=== PATIENT | female | born 1990 | race Caucasian/White ===

== ENCOUNTER 2018-12-08 21:12 | Emergency (ER) | payer OTHER ==
[2018-12-08 21:24] VITALS: BP 129/76; PULSE 77; RESP 20; TEMP 98.4
[2018-12-08 22:11] LABS: Appearance,Urine Clear (Clear); Bilirubin,Urine Negative (Negative); Blood,Urine Moderate (Negative); Color,Urine Yellow; Glucose,Urine (UA) Negative (Negative); Ketones,Urine Negative (Negative); Leukocyte Esterase,Urine Trace (Negative); Mucus,Urine Rare /hpf; Nitrite,Urine Negative (Negative); PH, Urine 6.5 (5.0-8.0); Protein,Urine Trace (Negative); RBC,Urine 1 /hpf (0-5); Specific Gravity,Urine 1.031 (1.001-1.035); Squamous Epithelial Cell,Urine 2 /hpf (0-4); Urobilinogen,Urine <2.0 mg/dL (<2.0)
--- NOTE | 2018-12-08 22:50 | ED ---
Female Urogenital HPI - General Chief complaint: Vaginal Bleeding Stated complaint: Vaginal bleeding Time Seen by Provider: 12/08/18 21:29 Source: patient Mode of arrival: ambulatory Limitations: no limitations - History of Present Illness Initial comments: Patient is a 28-year-old female presenting to emergency Department with complaints of vaginal and anal spotting 3 days. Patient states when she wipes after using the restroom she noticed his blood coming from her rectum and then also her vaginal area. Patient denies any abdominal pain, nausea, vomiting, fevers, chills. Patient denies any history of hemorrhoids. Patient states she recently had a Pap smear and STD testing at local [facility] and everything was negative. Patient states her last menstrual cycle was approximately 2 weeks ago. Patient denies having burning with urination, increasing frequency, or any other vaginal discharge. Patient has no other complaints at this time. Last Menstrual Period: 11/24/18 - Related Data Previous Rx's Medication Instructions Recorded Albuterol Inhaler [Ventolin Hfa 2 puff INHALATION Q4HR PRN #1 03/13/15 Inhaler] inhaler predniSONE 20 mg PO BID #8 tab 03/13/15 Allergies Allergy/AdvReac Type Severity Reaction Status Date / Time No Known Allergies Allergy Verified 12/08/18 21:24 Review of Systems ROS Statement: Those systems with pertinent positive or pertinent negative responses have been documented in the HPI. ROS Other: All systems not noted in ROS Statement are negative. Past Medical History Past Medical History: Asthma History of Any Multi-Drug Resistant Organisms: None Reported Past Surgical History: No Surgical Hx Reported Past Psychological History: No Psychological Hx Reported Smoking Status: Current every day smoker Past Alcohol Use History: Occasional Past Drug Use History: None Reported General Exam - General Exam Comments Initial Comments: GENERAL: Well-appearing, well-nourished and in no acute distress. HEAD: Atraumatic, normocephalic. EYES: Pupils equal round and reactive to light, extraocular movements intact, sclera anicteric, conjunctiva are normal. ENT: TMs normal, nares patent, oropharynx clear without exudates. Moist mucous membranes. NECK: Normal range of motion, supple without lymphadenopathy or JVD. LUNGS: Breath sounds clear to auscultation bilaterally and equal. No wheezes rales or rhonchi. HEART: Regular rate and rhythm without murmurs, rubs or gallops. ABDOMEN: Soft, nontender, normoactive bowel sounds. No guarding, no rebound. No masses appreciated. EXTREMITIES: Normal range of motion, no pitting or edema. No clubbing or cyanosis. NEUROLOGICAL: Cranial nerves II through XII grossly intact. Normal speech, normal gait. PSYCH: Normal mood, normal affect. SKIN: Warm, Dry, normal turgor, no rashes or lesions noted. Limitations: no limitations Rectal exam: Present: normal inspection External exam: Present: normal external exam Course Vital Signs 12/08/18 21:20 Temperature 98.4 F Pulse Rate 77 Respiratory 20 Rate Blood Pressure 129/76 O2 Sat by Pulse 98 Oximetry Medical Decision Making - Medical Decision Making Patient is a 20-year-old female complaining of vaginal and/or rectal spotting 3 days. Patient states she noticed the bleeding only when she wipes after having a bowel movement. Patient's last menstrual cycle was approximately 2 weeks ago. Patient denies abdominal pain, nausea, vomiting, fever, chills. On exam patient has no active bleeding from the vagina or the rectum. No abdominal pain. UA is within normal limits except moderate amount of blood. Urine hCG is not detected. Patient recently had Pap smear and STD testing at local health department and patient did test positive for Trichomonas but was treated. Patient was counseled on the possibility of having internal hemorrhoids along with irregular periods and/or some spotting with ovulation. Patient was counseled to follow up GARMENT INSPECTOR for further management. Patient is okay with this plan and will be discharged home. Return parameters were discussed. Case is discussed with Dr. Frank. - Lab Data Lab Results 12/08/18 12/08/18 Range/Units 21:00 21:00 Urine Color Yellow Urine Appearance Clear (Clear) Urine pH 6.5 (5.0-8.0) Ur Specific [place] 1.031 (1.001-1.035) Urine Protein Trace H (Negative) Urine Glucose (UA) Negative (Negative) Urine Ketones Negative (Negative) Urine Blood Moderate H (Negative) Urine Nitrite Negative (Negative) Urine Bilirubin Negative (Negative) Urine Urobilinogen <2.0 (<2.0) mg/dL Ur Leukocyte Esterase Trace H (Negative) Urine RBC 1 (0-5) /hpf Urine WBC 3 (0-5) /hpf Ur Squamous Epith Cells 2 (0-4) /hpf Urine Mucus Rare H (None) /hpf Urine HCG, Qual Not Detected (Not Detectd) Disposition Clinical Impression: Vaginal bleeding Disposition: HOME SELF-CARE Condition: Stable Instructions (If sedation given, give patient instructions): Menstruation (ED) Additional Instructions: Please return to the Emergency Department if symptoms worsen or any other concerns. Follow-up with G[facility] INSPECTOR.and/or GI. Is patient prescribed a controlled substance at d/c from ED?: No Referrals: None,Stated [Primary Care Provider] - 1-2 days Constantine Koo MD [STAFF PHYSICIAN] - 1-2 days
== END 2018-12-08 23:06 | disposition home or self-care (01) ==
LOC: EC 21:12
DX: N93.9 Abnormal uterine and vaginal bleeding, unspecified (principal); F17.200 Nicotine dependence, unspecified, uncomplicated
CPT/HCPCS: 81001; 81025; 99284

== ENCOUNTER → 2021-04-13 | Outpatient (CLI) | payer OTHER ==
[2021-04-13 14:07] VITALS: BP 121/82; PULSE 92; RESP 16; TEMP 98.5; BMI 39.2
--- NOTE | 2021-04-30 19:18 | P.HPBAR ---
Bariatric H&P - History & Physicial H&P Date: 04/13/21 History & Physicial: Visit/CC: Initial Visit Patient initial contact: Initial weight: 2.523 kg Initial weight in pounds: 5.56 Height: 5 ft 9 in Initial BMI: 0.8 Last weight: Current weight: 120.656 kg Current weight in pounds: 266.00 Current BMI: 39.2 [place] body weight (based on NIH guidelines): 65.771 kg Excess body weight loss: The patient is a 31 year-old F who presents for Bariatric Assessment. Patient presents today for presurgical consultation. She is interested in sleeve gastrectomy. Her BMI is 39. Past Medical History Past Medical History: Asthma History of Any Multi-Drug Resistant Organisms: None Reported Past Surgical History: No Surgical Hx Reported Past Psychological History: No Psychological Hx Reported Smoking Status: Unknown if ever smoked Past Alcohol Use History: Occasional Past Drug Use History: None Reported Surgical - Exam Vital Signs Temp Pulse Resp BP 98.5 F 92 16 121/82 04/13/21 14:04 04/13/21 14:04 04/13/21 14:04 04/13/21 14:04 - General well developed, well nourished, no distress - Eyes PERRL - ENT normal pinna - Neck no masses - Respiratory normal expansion - Cardiovascular Rhythm: regular - Abdomen Abdomen: soft, non tender Bariatric Assessment & Plan Plan: Morbid obesity. Patient has an excellent understanding of sleeve gastrectomy. Patient be scheduled for EGD. Bariatric Checklist Checklist: Plan: Checklist: EGD: 1. Hiatal hernia: 2. H. Pylori: HgbA1c: Vitamin D: Smoking: Current every day smoker Primary care physician referral: Psychiatry clearance: Cardiology clearance: Sleep study: Diet journal: VTE risk score: VTE risk level: Rehab needs at discharge:
== END ==
LOC: BARWHC3 13:25
PROVIDERS: ATTEND Surgery
DX: E66.01 Morbid (severe) obesity due to excess calories (principal); F17.200 Nicotine dependence, unspecified, uncomplicated; J45.909 Unspecified asthma, uncomplicated; Z68.39 Body mass index [BMI] 39.0-39.9, adult
CPT/HCPCS: 99202

== ENCOUNTER → 2021-04-20 | Outpatient (CLI) | payer OTHER ==
[2021-04-20 20:30] LABS: HCT 40.3 % (37.2-46.3); HGB 12.7 g/dL (12.0-15.0); MCHC 31.5 g/dL (32.0-37.0); MCV 95.3 fL (80.0-97.0); Mean Platelet Volume 11.3 fL (9.5-12.2); Platelet Count 318 X 10*3/uL (140-440); RBC 4.23 X 10*6/uL (4.10-5.20); RDW 13.9 % (11.5-14.5); WBC 8.12 X 10*3/uL (4.50-10.00)
[2021-04-20 21:26] LABS: ALT 23 U/L (8-44); AST 13 U/L (13-35); African American GFR (CKD) 118.5 (60.0-200.0); Albumin 4.1 g/dL (3.8-4.9); Albumin/Globulin Ratio 1.82 (1.60-3.17); Alkaline Phosphatase 46 U/L (41-126); BUN/Creat Ratio 24.03 Ratio (12.00-20.00); Blood Urea Nitrogen 18.6 mg/dL (9.0-27.0); Carbon Dioxide 20.3 mmol/L (21.6-31.8); Chloride 106 mmol/L (96-109); Globulin 2.2 g/dL (1.6-3.3); Glucose 96 mg/dL (70-110); Non-African American GFR(CKD) 102.2 (60.0-200.0); Potassium 4.5 mmol/L (3.5-5.5); Sodium 139 mmol/L (135-145); Total Bilirubin <0.20 mg/dL (0.30-1.20); Total Protein 6.3 g/dL (6.2-8.2)
== END | disposition home or self-care (01) ==
LOC: LABWHC1 12:25
PROVIDERS: ATTEND Surgery
DX: E88.81 Metabolic syndrome and other insulin resistance (principal); E66.01 Morbid (severe) obesity due to excess calories; I49.8 Other specified cardiac arrhythmias
CPT/HCPCS: 36415; 80053; 82306; 82607; 82746; 83036; 84425; 85027; 93005

== ENCOUNTER 2021-05-25 09:38 | Day surgery (SDC) | payer OTHER ==
[2021-05-21 12:14] VITALS: BMI 39.5
[~2021-05-25 09:38] MED LIST: LACTATED RINGERS 1,000 ML IV SCH
[2021-05-25 10:11] VITALS: TEMP 97.7
--- NOTE | 2021-05-25 10:38 | P.GSHP ---
History of Present Illness H&P Date: 05/25/21 Chief Complaint: GERD Is a 31-year-old female who has history of GERD. Patient presents today for EGD. She'll morbidly obese. She underwent workup for sleeve gastrectomy. Her BMI is 41 Past Medical History Past Medical History: Asthma, GERD/Reflux History of Any Multi-Drug Resistant Organisms: None Reported Past Surgical History: No Surgical Hx Reported Additional Past Anesthesia/Blood Transfusion Reaction / Comment(s): NO ANESTHESIA HX Past Psychological History: No Psychological Hx Reported Smoking Status: Current every day smoker Past Alcohol Use History: None Reported Additional Past Alcohol Use History / Comment(s): SMOKES 4-5 CIGARETTES/DAY, STARTED SMOKING AGE 16. Past Drug Use History: None Reported - Past Family History Mother Family Medical History: No Reported History Medications and Allergies Home Medications Medication Instructions Recorded Confirmed Type Albuterol Inhaler (Mhu) [Ventolin 2 puff INHALATION DIRECTED PRN 05/21/21 05/25/21 History Hfa Inhaler (Mhu)] Ergocalciferol [Vitamin D2 (1250 1,250 mcg PO DAILY 05/21/21 05/25/21 History Mcg = 75253 Iu)] Ibuprofen [Motrin] 800 mg PO DAILY PRN 05/21/21 05/25/21 History Allergies Allergy/AdvReac Type Severity Reaction Status Date / Time No Known Allergies Allergy Verified 05/25/21 09:52 Surgical - Exam Vital Signs Temp Pulse Resp BP Pulse Ox 97.7 F 85 18 127/59 95 05/25/21 10:03 05/25/21 10:03 05/25/21 10:03 05/25/21 10:03 05/25/21 10:03 - General well developed, well nourished, no distress - Eyes PERRL - ENT normal pinna - Neck no masses - Respiratory normal expansion - Cardiovascular Rhythm: regular - Abdomen Abdomen: soft, non tender Assessment and Plan Assessment: GERD, morbid obesity. We'll perform EGD.
[2021-05-25] MEDS ORDERED: LIDOCAINE 1% INJ 10MG/ML (20 ML MDV) ONE (10:39)
[2021-05-25] MEDS ORDERED: PROPOFOL 10 MG/ML 20 ML VIAL IV ONE (10:39)
--- NOTE | 2021-05-25 10:51 | P.OP ---
Date of Procedure: 05/25/21 Preoperative Diagnosis: GERD Morbid obesity Postoperative Diagnosis: Esophagitis Small hiatal hernia Procedure(s) Performed: EGD Anesthesia: MAC Surgeon: Kris Magaña Pathology: other (Esophagus) Condition: stable Disposition: PACU Description of Procedure: A shunt placed on the endoscopy table in the lateral position. She received IV sedation. The gastroscope placed oropharynx passed in the esophagus and into the stomach. The scope was then placed through the pylorus. First and second portion of the duodenum appeared somewhat back the antrum this was normal. Scope was retroflexed and the patient had a small hiatal hernia. The GE junction was at 38 cm. The distal esophagus appeared mildly inflamed a biopsies performed. The proximal esophagus appeared normal. Scope withdrawn for patient.
[2021-05-25 10:59] VITALS: RESP 16
[2021-05-25 11:12] VITALS: BP 113/77; PULSE 88
== END 2021-05-25 11:26 | disposition home or self-care (01) ==
LOC: ORWHC2ENDO 09:38
PROVIDERS: ATTEND Surgery
DX: K20.90 Esophagitis, unspecified without bleeding (principal); K44.9 Diaphragmatic hernia without obstruction or gangrene; K21.9 Gastro-esophageal reflux disease without esophagitis; J45.909 Unspecified asthma, uncomplicated; F17.210 Nicotine dependence, cigarettes, uncomplicated
CPT/HCPCS: 43239; 81025; 88305; J2001; J2704

== ENCOUNTER → 2021-06-01 | Outpatient (CLI) | payer OTHER ==
[2021-06-01 13:42] VITALS: BP 110/67; PULSE 69; TEMP 97.8; BMI 39.4
--- NOTE | 2021-06-01 14:55 | P.HPBAR ---
Bariatric H&P - History & Physicial H&P Date: 06/01/21 History & Physicial: Visit/CC: egd follow up Patient initial contact: Initial weight: 2.523 kg Initial weight in pounds: 5.56 Height: 5 ft 9 in Initial BMI: 0.8 Last weight: Current weight: 121.109 kg Current weight in pounds: 267.00 Current BMI: 39.4 [place] body weight (based on NIH guidelines): 65.771 kg Excess body weight loss: The patient is a 31 year-old F who presents for Bariatric Assessment. Patient presents today for presurgical consultation. She is morbidly obese. Her BMI is 40. Her recent EGD. She's had have some minimal gastritis. Past Medical History Past Medical History: Asthma, GERD/Reflux History of Any Multi-Drug Resistant Organisms: None Reported Past Surgical History: No Surgical Hx Reported Additional Past Anesthesia/Blood Transfusion Reaction / Comm: NO ANESTHESIA HX Smoking Status: Current every day smoker - Past Family History Mother Family Medical History: No Reported History Surgical - Exam Vital Signs Temp Pulse BP 97.8 F 69 110/67 06/01/21 13:40 06/01/21 13:40 06/01/21 13:40 - General well developed, well nourished, no distress - Eyes PERRL - ENT normal pinna - Neck no masses - Respiratory normal expansion - Cardiovascular Rhythm: regular - Abdomen Abdomen: soft, non tender Bariatric Assessment & Plan Plan: Morbid obesity. Patient has an excellent understanding of sleeve gastrectomy. We went over the risks and benefits of the procedure. She'll follow-up in 3 months. Bariatric Checklist Checklist: Plan: Checklist: EGD: 1. Hiatal hernia: 2. H. Pylori: HgbA1c: Vitamin D: Smoking: Current every day smoker Primary care physician referral: Psychiatry clearance: Cardiology clearance: Sleep study: Diet journal: VTE risk score: VTE risk level: Rehab needs at discharge:
== END ==
LOC: BARWHC3 13:08
PROVIDERS: ATTEND Surgery
DX: E66.01 Morbid (severe) obesity due to excess calories (principal); J45.909 Unspecified asthma, uncomplicated; F17.200 Nicotine dependence, unspecified, uncomplicated; Z98.84 Bariatric surgery status; Z68.39 Body mass index [BMI] 39.0-39.9, adult
CPT/HCPCS: 99211

== ENCOUNTER 2023-08-23 06:55 | Emergency (ER) | payer OTHER ==
--- NOTE | 2023-08-23 07:03 | ED ---
General Adult HPI - General Stated complaint: Cough,SOB,Chest Discomfort Time Seen by Provider: 08/23/23 07:00 Source: patient, RN notes reviewed Mode of arrival: ambulatory Limitations: no limitations - History of Present Illness Initial comments: 33-year-old female presents to the emergency department with chief complaint of shortness of breath, cough, chest discomfort. Patient states that she has been sick for over 10 days and has been experiencing a productive and dry cough since this time. Patient states that she has had intermittent fevers at home and associated nausea with an episode of vomiting last night. Patient also has complaints of chest pressure that is worsened with inspiration. Denies history of PE. Has attempted to take Tylenol and Motrin at home with minimal relief. Patient has a known history of asthma, and has been using her albuterol rescue i nhaler multiple times throughout the day without relief of her shortness of breath. Denies daily use of inhaled corticosteroid or bronchodilator therapy. Has noted wheezing over the past few days. - Related Data Home Medications Medication Instructions Recorded Confirmed Albuterol Inhaler [Ventolin Hfa 2 puff INHALATION DIRECTED PRN 05/21/21 05/25/21 Inhaler] Ergocalciferol [Vitamin D2 (1250 1,250 mcg PO DAILY 05/21/21 05/25/21 Mcg = 50759 Iu)] Ibuprofen [Motrin] 800 mg PO DAILY PRN 05/21/21 05/25/21 Previous Rx's Medication Instructions Recorded Albuterol Inhaler [Ventolin Hfa 1 - 2 puff INHALATION Q6H PRN #1 08/23/23 Inhaler] each predniSONE [Deltasone] 20 mg PO BID 5 Days #10 tab 08/23/23 Allergies Allergy/AdvReac Type Severity Reaction Status Date / Time No Known Allergies Allergy Verified 08/23/23 06:58 Review of Systems ROS Statement: Those systems with pertinent positive or pertinent negative responses have been documented in the HPI. ROS Other: All systems not noted in ROS Statement are negative. Past Medical History Past Medical History: Asthma, GERD/Reflux History of Any Multi-Drug Resistant Organisms: None Reported Past Surgical History: No Surgical Hx Reported Additional Past Anesthesia/Blood Transfusion Reaction / Comment(s): NO ANESTHESIA HX Past Psychological History: No Psychological Hx Reported Smoking Status: Current every day smoker Past Alcohol Use History: Occasional Past Drug Use History: Marijuana - Past Family History Mother Family Medical History: No Reported History General Exam Limitations: no limitations General appearance: alert, in no apparent distress, anxious Head exam: Present: atraumatic, normocephalic, normal inspection Eye exam: Present: normal appearance, PERRL, EOMI. Absent: scleral icterus, conjunctival injection, periorbital swelling ENT exam: Present: normal exam, mucous membranes moist Neck exam: Present: normal inspection. Absent: tenderness, meningismus, lymphadenopathy Respiratory exam: Present: wheezes (expiratory over right lung). Absent: normal lung sounds bilaterally, accessory muscle use Cardiovascular Exam: Present: regular rate, normal rhythm, tachycardia GI/Abdominal exam: Present: soft, normal bowel sounds. Absent: distended, tenderness, guarding, rebound, rigid Extremities exam: Present: normal inspection, full ROM, normal capillary refill. Absent: tenderness, pedal edema, joint swelling, calf tenderness Back exam: Present: normal inspection Neurological exam: Present: alert, oriented X3, CN II-XII intact Psychiatric exam: Present: normal affect, normal mood Skin exam: Present: warm, dry, intact, normal color. Absent: rash Course Vital Signs 08/23/23 08/23/23 08/23/23 06:56 07:44 07:51 Temperature 98 F Pulse Rate 127 H Pulse Rate [ 122 H Apical] Respiratory 22 18 Rate Blood Pressure 130/86 O2 Sat by Pulse 93 L Oximetry 08/23/23 08/23/23 08:16 08:28 Temperature Pulse Rate 106 H 100 Pulse Rate [ Apical] Respiratory 18 Rate Blood Pressure O2 Sat by Pulse 96 Oximetry Medical Decision Making - Medical Decision Making Was pt. sent in by a medical professional or institution (, PA, SUPERVISOR ELECTRON[employer]SEMBLY, urgent care, hospital, or usp...) When possible be specific @ -No Did you speak to anyone other than the patient for history (EMS, parent, family, police, friend...)? What history was obtained from this source @ -No Did you review nursing and triage notes (agree or disagree)? Why? @ -I reviewed and agree with nursing and triage notes Were old charts reviewed (outside hosp., previous admission, EMS record, old EKG, old radiological studies, urgent care reports/EKG's, usp records)? Report findings @ -No old charts were reviewed Differential Diagnosis (chest pain, altered mental status, abdominal pain women, abdominal pain men, vaginal bleeding, weakness, fever, dyspnea, syncope, headache, dizziness, GI bleed, back pain, seizure, CVA, palpatations, mental hea lth, musculoskeletal)? @ -Differential Dyspnea: Coronary syndrome, arrhythmia, tamponade, asthma, COPD, pulmonary embolism, pneumonia, pneumothorax, pulmonary effusion, anaphylaxis, diabetic ketoacidosis, flailed chest, pulmonary contusion, diaphragmatic rupture, anemia, neuromuscular, this is not meant to be an all-inclusive list. EKG interpreted by me (3pts min.). @ -interpreted as [place] rhythm, ventricular rate 98, ME interval 128, QTc 403. No acute ischemic changes.] X-rays interpreted by me (1pt min.). @ -cxr revelaed no acute cardiopulmonary process. CT interpreted by me (1pt min.). @ -None done U/S interpreted by me (1pt. min.). @ -None done What testing was considered but not performed or refused? (CT, X-rays, U/S, labs)? Why? @ -None What meds were considered but not given or refused? Why? @ -None Did you discuss the management of the patient with other professionals (martin durant i.e. , PA, SUPERVISOR ELECTRON[employer] ASSEMBLY, lab, RT, psych nurse, oncology social work, water tender, teacher, police officer booking, test case developer)? Give summary @ -No Was smoking cessation discussed for >3mins.? @ -No Was critical care preformed (if so, how long)? @ -No Were there social determinants of health that impacted care today? How? (Homelessness, low income, unemployed, alcoholism, drug addiction, transportation, low edu. Level, literacy, decrease access to med. care, retirement, rehab)? @ -No Was there de-escalation of care discussed even if they declined (Discuss DNR or withdrawal of care, Hospice)? DNR status @ -No What co-morbidities impacted this encounter? (DM, HTN, Smoking, COPD, CAD, Cancer, CVA, ARF, Chemo, Hep., AIDS, mental health diagnosis, sleep apnea, morbid obesity)? @ -Asthma Was patient admitted / discharged? Hospital course, mention meds given and route, prescriptions, significant lab abnormalities, going to OR and other pertinent info. @ -33-year-old female presents with chief complaint of cough, chest chest pressure, shortness of breath. Patient was given IV fluids, IV Solu-Medrol, and DuoNeb. EKG unremarkable for arrhythmia and ischemic changes. CBC revealed white blood cells 14, neutrophils 10. CMP sodium 136. cxr revelaed no acute cardiopulmonary process. Influenza A positive. wheezing has slightly improved proved after breathing treatment. Undiagnosed new problem with uncertain prognosis? @ -No Drug Therapy requiring intensive monitoring for toxicity (Heparin, Nitro, Insulin, Cardizem)? @ -No Were any procedures done? @ -No Diagnosis/symptom? @ Influenza A, acute asthma exacerbation Acute, or Chronic, or Acute on Chronic? @ -Acute Uncomplicated (without systemic symptoms) or Complicated (systemic symptoms)? @ -complicated Side effects of treatment? @ -No Exacerbation, Progression, or Severe Exacerbation? @ -Exacerbation Poses a threat to life or bodily function? How? (Chest pain, [place], [place], pneumonia, PE, COPD, DKA, ARF, appy, cholecystitis, CVA, Diverticulitis, Homicidal, [place] icidal, threat to staff... and all critical care pts) @ -No - Lab Data Result diagrams: 08/23/23 07:33 08/23/23 07:33 Lab Results 08/23/23 08/23/23 08/23/23 Range/Units 07:33 07:33 07:33 WBC 14.0 H (3.8-10.6) k/uL RBC 4.69 (3.80-5.40) m/uL Hgb 15.1 (11.4-16.0) gm/dL Hct 43.2 (34.0-46.0) % MCV 92.2 (80.0-100.0) fL MCH 32.2 (25.0-35.0) pg MCHC 35.0 (31.0-37.0) g/dL RDW 12.8 (11.5-15.5) % Plt Count 260 (150-450) k/uL MPV 8.9 Neutrophils % 76 % Lymphocytes % 14 % Monocytes % 6 % Eosinophils % 1 % Basophils % 1 % Neutrophils # 10.6 H (1.3-7.7) k/uL Lymphocytes # 2.0 (1.0-4.8) k/uL Monocytes # 0.9 (0-1.0) k/uL Eosinophils # 0.1 (0-0.7) k/uL Basophils # 0.1 (0-0.2) k/uL Sodium 136 L (137-145) mmol/L Potassium 3.7 (3.5-5.1) mmol/L Chloride 101 (98-107) mmol/L Carbon Dioxide 22 (22-30) mmol/L Anion Gap 13 mmol/L BUN 11 (7-17) mg/dL Creatinine 0.60 (0.52-1.04) mg/dL Est GFR (CKD-EPI)AfAm >90 (>60 ml/min/1.73 sqM) Est GFR (CKD-EPI)NonAf >90 (>60 ml/min/1.73 sqM) Glucose 117 H (74-99) mg/dL Calcium 9.5 (8.4-10.2) mg/dL Total Bilirubin 0.7 (0.2-1.3) mg/dL AST 26 (14-36) U/L ALT 24 (4-34) U/L Alkaline Phosphatase 45 (38-126) U/L Total Protein 7.6 (6.3-8.2) g/dL Albumin 4.5 (3.5-5.0) g/dL Influenza Type A (PCR) Detected A (Not Detectd) Influenza Type B (PCR) Not Detected (Not Detectd) RSV (PCR) Not Detected (Not Detectd) SARS-CoV-2 (PCR) Not Detected (Not Detectd) Disposition Clinical Impression: Influenza A, Asthma exacerbation Narrative: Please return to the Emergency Department if symptoms worsen or any other concerns. Directed patient how to appropriately use inhaler. Disposition: HOME SELF-CARE Condition: Good Instructions (If sedation given, give patient instructions): Influenza (ED) Is patient prescribed a controlled substance at d/c from ED?: No Referrals: Lokesh Lunsford MD [Primary Care Provider] - 1-2 days
[2023-08-23 07:23] VITALS: BP 130/86
[2023-08-23] MEDS: SODIUM CHLORIDE 0.9% 1,000 ML IV STA (07:37)
[2023-08-23 07:51] LABS: Basophils # (A) 0.1 k/uL (0-0.2); Basophils % (A) 1 %; Eosinophils # (A) 0.1 k/uL (0-0.7); Eosinophils % (A) 1 %; HCT 43.2 % (34.0-46.0); HGB 15.1 gm/dL (11.4-16.0); Lymphocytes % (A) 14 %; MCH 32.2 pg (25.0-35.0); MCV 92.2 fL (80.0-100.0); Mean Platelet Volume 8.9; Monocytes # (A) 0.9 k/uL (0-1.0); Monocytes % (A) 6 %; Neutrophils # (A) 10.6 k/uL (1.3-7.7); Neutrophils % (A) 76 %; Platelet Count 260 k/uL (150-450); RBC 4.69 m/uL (3.80-5.40); RDW 12.8 % (11.5-15.5)
[2023-08-23 07:57] VITALS: RESP 18
[2023-08-23] MEDS: methylPREDNISolone SOD SUCCI 125 MG/2 ML VIAL IV STA (07:57)
[2023-08-23 08:06] LABS: ALT 24 U/L (4-34); AST 26 U/L (14-36); African American GFR (CKD) >90 (>60 ml/min/1.73 sqM); Albumin 4.5 g/dL (3.5-5.0); Alkaline Phosphatase 45 U/L (38-126); Anion Gap 13 mmol/L; Blood Urea Nitrogen 11 mg/dL (7-17); Calcium 9.5 mg/dL (8.4-10.2); Carbon Dioxide 22 mmol/L (22-30); Chloride 101 mmol/L (98-107); Glucose 117 mg/dL (74-99); Non-African American GFR(CKD) >90 (>60 ml/min/1.73 sqM); Potassium 3.7 mmol/L (3.5-5.1); Sodium 136 mmol/L (137-145); Total Bilirubin 0.7 mg/dL (0.2-1.3); Total Protein 7.6 g/dL (6.3-8.2)
--- NOTE | 2023-08-23 08:10 | XR ---
EXAMINATION TYPE: XR chest 2V DATE OF EXAM: 08/23/2023 COMPARISON: 03/13/2015 HISTORY: Chest pain TECHNIQUE: Frontal and lateral views of the chest are obtained. FINDINGS: There is no focal air space opacity. No evidence for pneumothorax. No pleural effusion. The cardiac silhouette size is within normal limits. The osseous structures are grossly intact. IMPRESSION: 1. No acute cardiopulmonary process.
[2023-08-23] MEDS: IPRATROPIUM-ALBUTEROL 3 ML NEB INHALATION STA (08:27)
[2023-08-23 09:11] VITALS: PULSE 105; TEMP 98.9
== END 2023-08-23 08:53 | disposition home or self-care (01) ==
LOC: EC 06:55
DX: J10.1 Influenza due to other identified influenza virus with other respiratory manifestations (principal); J45.901 Unspecified asthma with (acute) exacerbation; F17.200 Nicotine dependence, unspecified, uncomplicated; F12.90 Cannabis use, unspecified, uncomplicated; Z20.822 Contact with and (suspected) exposure to COVID-19
CPT/HCPCS: 36415; 94640; 93005; 80053; 85025; 87636; 71046; 99285; 96374; 96361; J2930

== ENCOUNTER → 2024-03-06 | Outpatient (CLI) | payer OTHER | END | disposition home or self-care (01) | LOC: LABWHC1 14:27 | PROVIDERS: ATTEND Obstetrics & Gynecology | DX: O20.0 Threatened abortion (principal) | CPT/HCPCS: 36415; 84702; 86850; 86900; 86901 ==

== ENCOUNTER → 2024-03-08 | Outpatient (CLI) | payer OTHER | LOC: LABWHC1 15:31 | PROVIDERS: ATTEND Obstetrics & Gynecology | DX: O20.0 Threatened abortion (principal) | CPT/HCPCS: 36415; 84702 ==

== ENCOUNTER 2024-03-09 12:56 | Emergency (ER) | payer OTHER ==
[2024-03-09 13:06] VITALS: BP 110/74; PULSE 73; RESP 15; TEMP 97.8
--- NOTE | 2024-03-09 14:27 | US ---
EXAMINATION TYPE: Transabdominal DATE OF EXAM: 03/09/2024 1:49 PM COMPARISON: NONE CLINICAL INDICATION: Female, 34 years old with history of pain; Pt states abnormal ultrasound at [facility] 1 1/2 weeks ago- no pole visualized- pt states HCG levels increased by 5 points in 48 hours- pt states no bleeding, no pain EXAM PERFORMED: Transabdominal (TA) EXAM MEASUREMENTS: GESTATIONAL AGE / DATING Physician Established: Not yet established Dates by LMP: (9 weeks/0 days) EDC: 10/12/2024 Dates by First Scan: No previous this is first scan Dates by Current Scan for: (7 weeks/2 days) EDC: 10/24/2024 MATERNAL ANATOMY Uterus: 9.7 x 5.0 x 5.2 cm Right Ovary: 3.0 x 2.5 x 2.4 cm Left Ovary: 2.5 x 1.4 x 2.4 cm Post CDS / Adnexa: wnl Presence of free fluid: No Presence of corpus luteal cyst: Right Ovary= 2.0 x 1.5 x 1.8 cm Presence of subchorionic bleed: No GESTATION / SURVEY CRL: Not visualized on today's exam . [place]-rump length should be visualized at 6 weeks by transvagin al ultrasound MSD: 2.6 cm (7 weeks/2 days) Yolk Sac (normal less than 6mm): 3mm Date of LMP: 01/06/2024 Beta HcG (if available): Not available at this time Gestational sac visualized within uterus- possible yolk sac with empty amnion visualized- no pole visualized on today's exam IMPRESSION: 1. Single intrauterine gestational sac estimated at 7 weeks 2 days gestation based on the mean sac di ameter. However, no pole is identified. No cardiac activity is evident. Yolk sac is present. Co nsider blighted ovum. Correlation with beta hCG and follow-up is recommended [facility], , 03/09/2024 2:24 PM
--- NOTE | 2024-03-09 15:56 | ED ---
General Adult HPI - General Chief complaint: OB/Uterine Contractions Stated complaint: 6 wks , low HCG levels Time Seen by Provider: 03/09/24 13:08 Source: patient, RN notes reviewed Mode of arrival: ambulatory Limitations: no limitations - History of Present Illness Initial comments: 34-year-old female presents emergency department complaint of possible miscarriage. Patient states her hCG levels are not climbing as usual she states she had ultrasound last week did not show any activity. Patient denies any vaginal bleeding or abdominal pain. - Related Data Home Medications Medication Instructions Recorded Confirmed Albuterol Inhaler [Ventolin Hfa 2 puff INHALATION DIRECTED PRN 05/21/2105/25 Inhaler] Ergocalciferol [Vitamin D2 (1250 1,250 mcg PO DAILY 05/21/21 05/25/21 Mcg = 64585 Iu)] Ibuprofen [Motrin] 800 mg PO DAILY PRN 05/21/21 05/25/21 Previous Rx's Medication Instructions Recorded Albuterol Inhaler [Ventolin Hfa 1 - 2 puff INHALATION Q6H PRN #1 08/23/23 Inhaler] each predniSONE [Deltasone] 20 mg PO BID 5 Days #10 tab 08/23/23 Allergies Allergy/AdvReac Type Severity Reaction Status Date / Time No Known Allergies Allergy Verified 03/09/24 13:06 Review of Systems ROS Statement: Those systems with pertinent positive or pertinent negative responses have been documented in the HPI. ROS Other: All systems not noted in ROS Statement are negative. Past Medical History Past Medical History: Asthma, GERD/Reflux History of Any Multi-Drug Resistant Organisms: None Reported Past Surgical History: No Surgical Hx Reported Additional Past Anesthesia/Blood Transfusion Reaction / Comment(s): NO ANESTHESIA HX Past Psychological History: No Psychological Hx Reported Smoking Status: Current every day smoker Past Alcohol Use History: None Reported, Occasional Past Drug Use History: None Reported, Marijuana - Past Family History Mother Family Medical History: No Reported History General Exam Limitations: no limitations General appearance: alert, in no apparent distress Head exam: Present: atraumatic, normocephalic, normal inspection Neck exam: Present: normal inspection, full ROM. Absent: tenderness, meningismus, lymphadenopathy Respiratory exam: Present: normal lung sounds bilaterally. Absent: respiratory distress, wheezes, rales, rhonchi, stridor Cardiovascular Exam: Present: regular rate, normal rhythm, normal heart sounds. Absent: systolic murmur, diastolic murmur, rubs, gallop, clicks GI/Abdominal exam: Present: soft, normal bowel sounds. Absent: distended, tenderness, guarding, rebound, rigid Neurological exam: Present: alert Course Vital Signs 03/09/24 13:01 Temperature 97.8 F Pulse Rate 73 Respiratory 15 Rate Blood Pressure 110/74 O2 Sat by Pulse 100 Oximetry Medical Decision Making - Medical Decision Making Was pt. sent in by a medical professional or institution (, PA, OIL SALES AND SERVICE REP, urgent care, hospital, or penitentiary...) When possible be specific @ -No Did you speak to anyone other than the patient for history (EMS, parent, family, police, friend...)? What history was obtained from this source @ -No Did you review nursing and triage notes (agree or disagree)? Why? @ -I reviewed and agree with nursing and triage notes Were old charts reviewed (outside hosp., previous admission, EMS record, old EKG, old radiological studies, urgent care reports/EKG's, penitentiary records)? Report findings @ -No old charts were reviewed Differential Diagnosis (chest pain, altered mental status, abdominal pain women, abdominal pain men, vaginal bleeding, weakness, fever, dyspnea, syncope, hea dache, dizziness, GI bleed, back pain, seizure, CVA, palpatations, mental health, musculoskeletal)? @ -Differential Vaginal Bleeding: Spontaneous , threatened , molar , ectopic , bloody show, incompetent cervix, abruptioplacenta, placenta previa, uterine rupture, dysfunctional uterine bleeding, hemorrhage, uterine fibroids, this is not meant to be an all-inclusive list. EKG interpreted by me (3pts min.). @ -None X-rays interpreted by me (1pt min.). @ -None done CT interpreted by me (1pt min.). @ -None done U/S interpreted by me (1pt. min.). @ -Ultrasound OB shows evidence of blighted ovum, no heart activity What testing was considered but not performed or refused? (CT, X-rays, U/S, labs)? Why? @ -None What meds were considered but not given or refused? Why? @ -None Did you discuss the management of the patient with other professionals (professionals i.e. , PA, OIL SALES AND SERVICE REP, lab, RT, psych nurse, licensed social worker, form tamper operator, teacher, digital marketing officer, field case manager)? Give summary @ -No Was smoking cessation discussed for >3mins.? @ -No Was critical care preformed (if so, how long)? @ -No Were there social determinants of health that impacted care today? How? (Homelessness, low income, unemployed, alcoholism, drug addiction, transportation, low edu. Level, literacy, decrease access to med. care, longterm, rehab)? @ -No Was there de-escalation of care discussed even if they declined (Discuss DNR or withdrawal of care, Hospice)? DNR status @ -No What co-morbidities impacted this encounter? (DM, HTN, Smoking, COPD, CAD, Cancer, CVA, ARF, Chemo, Hep., AIDS, mental health diagnosis, sleep apnea, morbid obesity)? @ -None Was patient admitted / discharged? Hospital course, mention meds given and route, prescriptions, significant lab abnormalities, going to OR and other pertinent info. @ -Charge patient presented for possible miscarriage hCG has declined, ultrasound consistent with blighted ovum patient will follow-up with VETERINARY MANAGER. Undiagnosed new problem with uncertain prognosis? @ -No Drug Therapy requiring intensive monitoring for toxicity (Heparin, Nitro, Insulin, Cardizem)? @ -No Were any procedures done? @ -No Diagnosis/symptom? @ -Miscarriage Acute, or Chronic, or Acute on Chronic? @ -Acute Uncomplicated (without systemic symptoms) or Complicated (systemic symptoms)? @ -Uncomplicated Side effects of treatment? @ -No Exacerbation, Progression, or Severe Exacerbation? @ -No Poses a threat to life or bodily function? How? (Chest pain, [place], [place], pneumonia, PE, COPD, DKA, ARF, appy, cholecystitis, CVA, Diverticulitis, Homicidal, Sosa icidal, threat to staff... and all critical care pts) @ -No - Lab Data Lab Results 03/09/24 Range/Units 13:29 HCG, Quant 30653.4 mIU/mL Disposition Clinical Impression: Blighted ovum, Miscarriage Disposition: HOME SELF-CARE Condition: Stable Instructions (If sedation given, give patient instructions): Miscarriage (ED) Additional Instructions: Please return to the Emergency Department if symptoms worsen or any other concerns. Is patient prescribed a controlled substance at d/c from ED?: No Referrals: Lokesh Lunsford MD [Primary Care Provider] - 1-2 days Time of Disposition: 15:56
== END 2024-03-09 16:16 | disposition home or self-care (01) ==
LOC: EC 12:56
DX: O02.0 Blighted ovum and nonhydatidiform mole (principal); O03.9 Complete or unspecified spontaneous abortion without complication; O99.331 Smoking (tobacco) complicating pregnancy, first trimester; F17.200 Nicotine dependence, unspecified, uncomplicated; Z3A.01 Less than 8 weeks gestation of pregnancy
CPT/HCPCS: 36415; 76801; 84702; 99284

== ENCOUNTER 2024-03-17 07:24 | Emergency (ER) | payer OTHER ==
[2024-03-17] MEDS: MORPHINE SULFATE 4 MG/ML SYRINGE IVP STA (07:54)
[2024-03-17] MEDS: ONDANSETRON 4 MG/2 ML VIAL IVP STA (07:54)
[2024-03-17] MEDS: SODIUM CHLORIDE 0.9% 1,000 ML IV STA (07:55)
--- NOTE | 2024-03-17 08:15 | ED ---
Abdominal Pain HPI - General Chief Complaint: Abdominal Pain Stated Complaint: Abd pain, vaginal bleeding, miscarriage Time Seen by Provider: 03/17/24 08:13 Source: patient, RN notes reviewed, old records reviewed Mode of arrival: ambulatory Limitations: no limitations - History of Present Illness Initial Comments: 34-year-old female presented the ER with a chief complaint of lower abdominal pain. Patient was seen here on 03-09-2024 and was told she was having a miscarriage. Patient states approximately 3 days ago she started to have heavy vaginal bleeding including clots. She states the bleeding has since subsided. Stating she went through about 2 pads yesterday. She states last night she started to experience mild abdominal cramping which is increased today to a 10 out of 10 sharp pain. She has not followed up with REHABILITATION AIDE/SCHEDULER since last visit. She does report nausea due to the pain. She has taken [id number] ibuprofen without relief. Denies any fevers or chills. Denies any diarrhea, constipation, peripheral edema, dysuria or other complaints. - Related Data Home Medications Medication Instructions Recorded Confirmed Albuterol Inhaler [Ventolin Hfa 2 puff INHALATION DIRECTED PRN 05/21/21 05/25/21 Inhaler] Ergocalciferol [Vitamin D2 (1250 1,250 mcg PO DAILY 05/21/21 05/25/21 Mcg = 92033 Iu)] Ibuprofen [Motrin] 800 mg PO DAILY PRN 05/21/21 05/25/21 Previous Rx's Medication Instructions Recorded Albuterol Inhaler [Ventolin Hfa 1 - 2 puff INHALATION Q6H PRN #1 08/23/23 Inhaler] each predniSONE [Deltasone] 20 mg PO BID 5 Days #10 tab 08/23/23 Allergies Allergy/AdvReac Type Severity Reaction Status Date / Time No Known Allergies Allergy Verified 03/17/24 07:28 Review of Systems ROS Statement: Those systems with pertinent positive or pertinent negative responses have been documented in the HPI. ROS Other: All systems not noted in ROS Statement are negative. Past Medical History Past Medical History: Asthma, GERD/Reflux History of Any Multi-Drug Resistant Organisms: None Reported Past Surgical History: No Surgical Hx Reported Additional Past Anesthesia/Blood Transfusion Reaction / Comment(s): NO ANESTHE PATRICIA HX Past Psychological History: No Psychological Hx Reported Smoking Status: Current every day smoker Past Alcohol Use History: Occasional Past Drug Use History: Marijuana - Past Family History Mother Family Medical History: No Reported History General Exam Limitations: no limitations General appearance: alert, in no apparent distress Respiratory exam: Present: normal lung sounds bilaterally. Absent: respiratory distress, wheezes, rales, rhonchi, stridor Cardiovascular Exam: Present: regular rate, normal rhythm, normal heart sounds. Absent: systolic murmur, diastolic murmur, rubs, gallop, clicks GI/Abdominal exam: Present: soft, tenderness (suprapubic), normal bowel sounds Extremities exam: Present: normal inspection, full ROM, normal capillary refill. Absent: tenderness, pedal edema, joint swelling, calf tenderness Neurological exam: Present: alert, oriented X3, CN II-XII intact Skin exam: Present: warm, dry, intact, normal color. Absent: rash Course Vital Signs 03/17/24 03/17/24 03/17/24 07:26 07:56 09:42 Temperature 97.6 F 97.8 F Pulse Rate 97 113 H 86 Respiratory 20 24 20 Rate Blood Pressure 126/86 124/62 118/68 O2 Sat by Pulse 97 97 98 Oximetry - Reevaluation(s) Reevaluation #1: 03/17/24 09:30 Patient discussed with on-call REHABILITATION AIDE/SCHEDULER, , advised on outpatient follow-up with Dr. Avery in the next week. Medical Decision Making - Medical Decision Making Was pt. sent in by a medical professional or institution (, PA, SPOOLER OPERATOR, urgent care, hospital, or care home...) When possible be specific @ -No Did you speak to anyone other than the patient for history (EMS, parent, family, police, friend...)? What history was obtained from this source @ -No Did you review nursing and triage notes (agree or disagree)? Why? @ -I reviewed and agree with nursing and triage notes Were old charts reviewed (outside hosp., previous admission, EMS record, old EKG, old radiological studies, urgent care reports/EKG's, care home records)? Report findings @ -I reviewed ER visit from 03-09-2024. Ultrasound at that time showing a blighted ovum. Serum hCG 04377 Differential Diagnosis (chest pain, altered mental status, abdominal pain women, abdominal pain men, vaginal bleeding, weakness, fever, dyspnea, syncope, headache, dizziness, GI bleed, back pain, seizure, CVA, palpatations, mental health, musculoskeletal)? @-Differential Abdominal Pain Women: Appendicitis, Cholecystitis, diverticulosis, ischemic bowel, pancreatitis, hepatitis, UTI, gastroenteritis, AAA, incarcerated hernia, bowel obstruction, constipation, inflammatory bowel, hepatitis, peptic ulcer disease, splenic infarction, perforated viscus, vulvitis , ovarian torsion, PID, kidney stone, placenta abruption, this is not meant to be an all-inclusive list EKG interpreted by me (3pts min.). @ -None done X-rays interpreted by me (1pt min.). @ -None done CT interpreted by me (1pt min.). @ -None done U/S interpreted by me (1pt. min.). @ - ultrasound showing no significant abnormalities of the ovaries or uterus. What testing was considered but not performed or refused? (CT, X-rays, U/S, labs)? Why? @ -None What meds were considered but not given or refused? Why? @ -None Did you discuss the management of the patient with other professionals (professionals i.e. , PA, SPOOLER OPERATOR, lab, RT, psych nurse, manager social media, psychological operations officer, teacher, principal gifts officer, manager case management)? Give summary @ -Case discussed with on-call REHABILITATION AIDE/SCHEDULER, Dr. Qureshi, who advised on outpatient follow-up with Dr. Avery next week. Was smoking cessation discussed for >3mins.? @ -No Was critical care preformed (if so, how long)? @ -No Were there social determinants of health that impacted care today? How? (Homelessness, low income, unemployed, alcoholism, drug addiction, t ransportation, low edu. Level, literacy, decrease access to med. care, prison, rehab)? @ -No Was there de-escalation of care discussed even if they declined (Discuss DNR or withdrawal of care, Hospice)? DNR status @ -No What co-morbidities impacted this encounter? (DM, HTN, Smoking, COPD, CAD, Cance r, CVA, ARF, Chemo, Hep., AIDS, mental health diagnosis, sleep apnea, morbid obesity)? @ -None Was patient admitted / discharged? Hospital course, mention meds given and route, prescriptions, significant lab abnormalities, going to OR and other pertinent info. @ -Discharge. 34-year-old female presented to ER with a chief complaint of abdominal pain. Patient seen here on 03-09-2024 and diagnosed with a blighted ovum and possible miscarriage. Serum hCG at that time 15,846. Patient presen ts today for increasing abdominal pain. History and physical exam completed. Vitals within normal limits. Exam remarkable for tenderness to suprapubic region. Pelvic exam performed showing mild cervical bleeding. Os closed. Exam chaperoned by Geni TOBIN. laboratory studies obtained remarkable for stable hemoglobin at 12.7 CMP unremarkable. Serum hCG 1595. Urine is hemorrhagic which is likely related to vaginal bleeding. Ultrasound not showing IUP at this time. No significant abnormalities ovaries and uterus. Patient received IV morphine, Zofran and IV fluids in the ER for symptom control, with improvement. It is believed patient has had a spontaneous . Blood type O+ RhoGAM not indicated. Case discussed with on-call REHABILITATION AIDE/SCHEDULER, Dr. Qureshi, who advised on outpatient follow-up with Dr. Avery next week. Upon reevaluation, patient resting comfortably in exam room no signs of acute distress. Results discussed with patient, all questions answered. Patient discharged with starter pack of Tylenol threes for pain control. Advise close follow-up with Dr. Avery as instructed by Dr. Qureshi. Return parameters discussed. Patient discharged in stable condition. Patient verbally expressed understanding agree with care plan. Case discussed with ED attending, Dr. Garcia. Undiagnosed new problem with uncertain prognosis? @ -No Drug Therapy requiring intensive monitoring for toxicity (Heparin, Nitro, Insulin, Cardizem)? @ -No Were any procedures done? @ -No Diagnosis/symptom? @ -Spontaneous Acute, or Chronic, or Acute on Chronic? @ -Acute Uncomplicated (without systemic symptoms) or Complicated (systemic symptoms)? @ -Uncomplicated Side effects of treatment? @ -No Exacerbation, Progression, or Severe Exacerbation? @ -No Poses a threat to life or bodily function? How? (Chest pain, [place], [place], pneumonia, PE, COPD, DKA, ARF, appy, cholecystitis, CVA, Diverticulitis, Homicidal, Suicidal, threat to staff... and all critical care pts) @ -No - Lab Data Result diagrams: 03/17/24 07:43 03/17/24 07:43 Lab Results 03/17/24 03/17/24 03/17/24 Range/Units 07:41 07:43 07:43 WBC 10.4 (3.8-10.6) k/uL RBC 3.96 (3.80-5.40) m/uL Hgb 12.7 (11.4-16.0) gm/dL Hct 37.4 (34.0-46.0) % MCV 94.5 (80.0-100.0) fL MCH 32.2 (25.0-35.0) pg MCHC 34.1 (31.0-37.0) g/dL RDW 12.6 (11.5-15.5) % Plt Count 293 (150-450) k/uL MPV 7.9 Neutrophils % 61 % Lymphocytes % 29 % Monocytes % 4 % Eosinophils % 2 % Basophils % 0 % Neutrophils # 6.4 (1.3-7.7) k/uL Lymphocytes # 3.1 (1.0-4.8) k/uL Monocytes # 0.4 (0-1.0) k/uL Eosinophils # 0.2 (0-0.7) k/uL Basophils # 0.0 (0-0.2) k/uL Sodium 138 (137-145) mmol/L Potassium 4.2 (3.5-5.1) mmol/L Chloride 106 (98-107) mmol/L Carbon Dioxide 25 (22-30) mmol/L Anion Gap 7 mmol/L BUN 18 H (7-17) mg/dL Creatinine 0.74 (0.52-1.04) mg/dL Est GFR (CKD-EPI)AfAm >90 (>60 ml/min/1.73 sqM) Est GFR (CKD-EPI)NonAf >90 (>60 ml/min/1.73 sqM) Glucose 100 H (74-99) mg/dL Plasma Lactic Acid Jani (0.7-2.0) mmol/L Calcium 9.1 (8.4-10.2) mg/dL Total Bilirubin 0.3 (0.2-1.3) mg/dL AST 20 (14-36) U/L ALT 19 (4-34) U/L Alkaline Phosphatase 39 (38-126) U/L Total Protein 6.8 (6.3-8.2) g/dL Albumin 4.1 (3.5-5.0) g/dL HCG, Quant 1595.2 mIU/mL Urine Color Urine Appearance (Clear) Urine pH (5.0-8.0) Ur Specific [place] (1.001-1.035) Urine Protein (Negative) Urine Glucose (UA) (Negative) Urine Ketones (Negative) Urine Blood (Negative) Urine Nitrite (Negative) Urine Bilirubin (Negative) Urine Urobilinogen (<2.0) mg/dL Ur Leukocyte Esterase (Negative) Urine RBC (0-5) /hpf Urine WBC (0-5) /hpf Ur Squamous Epith Cells (0-4) /hpf Urine Mucus (None) /hpf Blood Type O Positive Blood Type Recheck O Pos Bld Type Recheck Status No 03/17/24 03/17/24 Range/Units 07:43 08:13 WBC (3.8-10.6) k/uL RBC (3.80-5.40) m/uL Hgb (11.4-16.0) gm/dL Hct (34.0-46.0) % MCV (80.0-100.0) fL MCH (25.0-35.0) pg MCHC (31.0-37.0) g/dL RDW (11.5-15.5) % Plt Count (150-450) k/uL MPV Neutrophils % % Lymphocytes % % Monocytes % % Eosinophils % % Basophils % % Neutrophils # (1.3-7.7) k/uL Lymphocytes # (1.0-4.8) k/uL Monocytes # (0-1.0) k/uL Eosinophils # (0-0.7) k/uL Basophils # (0-0.2) k/uL Sodium (137-145) mmol/L Potassium (3.5-5.1) mmol/L Chloride (98-107) mmol/L Carbon Dioxide (22-30) mmol/L Anion Gap mmol/L BUN (7-17) mg/dL Creatinine (0.52-1.04) mg/dL Est GFR (CKD-EPI)AfAm (>60 ml/min/1.73 sqM) Est GFR (CKD-EPI)NonAf (>60 ml/min/1.73 sqM) Glucose (74-99) mg/dL Plasma Lactic Acid Jani 0.9 (0.7-2.0) mmol/L Calcium (8.4-10.2) mg/dL Total Bilirubin (0.2-1.3) mg/dL AST (14-36) U/L ALT (4-34) U/L Alkaline Phosphatase (38-126) U/L Total Protein (6.3-8.2) g/dL Albumin (3.5-5.0) g/dL HCG, Quant mIU/mL Urine Color Light Yellow Urine Appearance Clear (Clear) Urine pH 7.5 (5.0-8.0) Ur Specific [place] 1.024 (1.001-1.035) Urine Protein 1+ H (Negative) Urine Glucose (UA) Negative (Negative) Urine Ketones Negative (Negative) Urine Blood Large H (Negative) Urine Nitrite Negative (Negative) Urine Bilirubin Negative (Negative) Urine Urobilinogen <2.0 (<2.0) mg/dL Ur Leukocyte Esterase Small H (Negative) Urine RBC 24 H (0-5) /hpf Urine WBC 3 (0-5) /hpf Ur Squamous Epith Cells 3 (0-4) /hpf Urine Mucus Rare H (None) /hpf Blood Type Blood Type Recheck Bld Type Recheck Status - Radiology Data Radiology results: report reviewed, image reviewed Disposition Clinical Impression: Spontaneous Disposition: HOME SELF-CARE Condition: Stable Instructions (If sedation given, give patient instructions): Miscarriage (ED) Additional Instructions: Follow-up with Dr. Avery in the next week. Take [id number] ibuprofen for pain control. Return to the ER for any new or worsening concerns. Is patient prescribed a controlled substance at d/c from ED?: No Referrals: Lokesh Lunsford MD [Primary Care Provider] - 1-2 days Adelita Avery DO [Doctor of Osteopathic Medicine] - 1-2 days Time of Disposition: 09:29
[2024-03-17 08:31] LABS: Basophils % (A) 0 %; Eosinophils # (A) 0.2 k/uL (0-0.7); Eosinophils % (A) 2 %; HCT 37.4 % (34.0-46.0); HGB 12.7 gm/dL (11.4-16.0); Lymphocytes # (A) 3.1 k/uL (1.0-4.8); Lymphocytes % (A) 29 %; MCH 32.2 pg (25.0-35.0); MCHC 34.1 g/dL (31.0-37.0); MCV 94.5 fL (80.0-100.0); Mean Platelet Volume 7.9; Monocytes # (A) 0.4 k/uL (0-1.0); Monocytes % (A) 4 %; Neutrophils # (A) 6.4 k/uL (1.3-7.7); Neutrophils % (A) 61 %; Platelet Count 293 k/uL (150-450); RBC 3.96 m/uL (3.80-5.40); RDW 12.6 % (11.5-15.5); WBC 10.4 k/uL (3.8-10.6)
[2024-03-17 08:32] LABS: ALT 19 U/L (4-34); AST 20 U/L (14-36); African American GFR (CKD) >90 (>60 ml/min/1.73 sqM); Albumin 4.1 g/dL (3.5-5.0); Alkaline Phosphatase 39 U/L (38-126); Anion Gap 7 mmol/L; Blood Urea Nitrogen 18 mg/dL (7-17); Calcium 9.1 mg/dL (8.4-10.2); Carbon Dioxide 25 mmol/L (22-30); Chloride 106 mmol/L (98-107); Glucose 100 mg/dL (74-99); Non-African American GFR(CKD) >90 (>60 ml/min/1.73 sqM); Potassium 4.2 mmol/L (3.5-5.1); Sodium 138 mmol/L (137-145); Total Bilirubin 0.3 mg/dL (0.2-1.3); Total Protein 6.8 g/dL (6.3-8.2)
[2024-03-17 08:48] LABS: HCG,Quantitative Serum 1595.2 mIU/mL
--- NOTE | 2024-03-17 08:48 | US ---
EXAMINATION TYPE: US pelvic complete DATE OF EXAM: 03/17/2024 COMPARISON: OB first trimester 03/09/24 CLINICAL INDICATION: Female, 34 years old with history of lower abd pain miscarriage 03/09; Patient caraballo d OB melissa tri US last week -- no pole seen. Presents today on day 3 of vaginal bleeding with i ntense cramping TECHNIQUE: Transabdominal (TA). Transabdominal sonographic images of the pelvis were acquired. Tra nsvaginal sonographic images were medically necessary to better assess the following anatomy: Date of LMP: Unknown EXAM MEASUREMENTS: Uterus: 10.0 x 4.9 x 5.4 Endometrial Stripe: 1.1 cm Right Ovary: 2.7 x 2.9 x 2.1 cm Left Ovary: 3.4 x 2.4 x 2.7 cm 1. Uterus: Anteverted Appears wnl as visualized 2. Endometrium: Appears wnl as visualized 3. Right Ovary: wnl 4. Left Ovary: wnl Spectral, color and waveform doppler imaging shows good arterial and venous flow within the ovaries ; there is no evidence for ovarian torsion. 5. Bilateral Adnexa: Overlying bowel gas noted 6. Posterior cul-de-sac: wnl IMPRESSION: No significant abnormality of the ovaries or uterus. [facility], , 03/17/2024 8:46 AM
[2024-03-17 09:05] LABS: Appearance,Urine Clear (Clear); Bilirubin,Urine Negative (Negative); Blood,Urine Large (Negative); Color,Urine Light Yellow; Glucose,Urine (UA) Negative (Negative); Ketones,Urine Negative (Negative); Leukocyte Esterase,Urine Small (Negative); Mucus,Urine Rare /hpf; Nitrite,Urine Negative (Negative); PH, Urine 7.5 (5.0-8.0); Protein,Urine 1+ (Negative); RBC,Urine 24 /hpf (0-5); Specific Gravity,Urine 1.024 (1.001-1.035); Squamous Epithelial Cell,Urine 3 /hpf (0-4); Urobilinogen,Urine <2.0 mg/dL (<2.0); WBC,Urine 3 /hpf (0-5)
[2024-03-17] MEDS: ACET/COD 300 MG/30 MG STARTER PACK 6 TAB BTL PO STA (09:40)
[2024-03-17 09:43] VITALS: BP 118/68; PULSE 86; RESP 20; TEMP 97.8
== END 2024-03-17 09:43 | disposition home or self-care (01) ==
LOC: EC 07:24
CPT/HCPCS: 36415; 76856; 80053; 81001; 83605; 84702; 85025; 86900; 86901; 93975; 96361; 96374; 96375; 99284

== ENCOUNTER 2024-09-14 18:21 | Outpatient (CLI) | payer OTHER ==
[2024-09-14 19:56] VITALS: BP 130/62; PULSE 113; RESP 20; TEMP 97.9
--- NOTE | 2024-10-13 11:30 | P.MSEPDOC ---
Presenting Problems - Arrival Data Date of Arrival on Unit: 09/14/24 Time of Arrival on Unit: 18:21 Mode of Transport: Ambulatory - Complaint OB-Reason for Admission/Chief Complaint: Other Comment: [facility], she tested positive for influenza A Medical History - Information : 2 Para: 0 Term: 0 : 0 Abortions: Spontaneous or Elective: 0 Number of Living Children: 0 - Gestational Age Gestational Age by CASSIE (wks/days): 20 Weeks and 4 Days Review of Systems - Review of Systems Constitutional: No problems Breast: No problems ENT: No problems Cardiovascular: No problems Respiratory: No problems Gastrointestinal: No problems Genitourinary: No problems Musculoskeletal: No problems Neurological: No problems Skin: No problems Vital Signs - Temperature Temperature: 97.9 F Temperature Source: Temporal Artery Scan - Pulse Right Brachial Pulse Rate: 113 Pulse Assessment Method: Automatic Cuff - Respirations Respiratory Rate: 20 Oxygen Delivery Method: Room Air O2 Sat by Pulse Oximetry: 98 - Blood Pressure Right Arm Blood Pressure: 130/62 Blood Pressure Mean: 84 Blood Pressure Source: Automatic Cuff Medical Screen Scoring - Assessment - Baby A Baseline FHR: 145 Heart Rate - NICHD Category: Category I (Normal) Physician Notification - Physician Notified Physician Notified Date: 09/14/24 Physician Notified Time: 19:20 Physician: Constantine Koo Order Received: Yes - Notification Comment Comment: fht's dopplered for 145-160, positive movement heard by RN, abd soft to palpation, no ctx's, tamiflu called into [facility] in [place] Maternal Triage Index - Maternal Triage Index Presenting for scheduled procedure w/no complaint: No - Stat/Priority 1 Stat Priority 1: No - Urgent/Priority 2 Urgent Priority 2: No - Prompt/Priority 3 Prompt Priority 3: No - Non-Urgent/Priority 4 Non-Urgent Priority 4: Yes Criteria Met for Priority 4: pt sent over from [facility] for evaluation and pelvic cramping, she tested positive for influenza A Disposition - Disposition OB Disposition: Triage, Discharge to home, Written follow up instructions reviewed Discharge Date: 09/14/24 Discharge Time: 19:30 I agree with the RN Medical Screening Exam: Yes Physician's MSE Comment: I have neither seen nor examined the patient. Case reviewed; plan agreed upon as documented in EMR&OBIX.: Yes Diagnosis: RELATED CONDITIONS, UNSPECIFIED, SECOND TRIMESTER
== END 2024-09-14 19:30 | disposition home or self-care (01) ==
LOC: FBPOP 18:21
PROVIDERS: ATTEND Obstetrics & Gynecology
DX: O26.892 Other specified pregnancy related conditions, second trimester (principal); O99.332 Smoking (tobacco) complicating pregnancy, second trimester; F17.200 Nicotine dependence, unspecified, uncomplicated; Z3A.20 20 weeks gestation of pregnancy
CPT/HCPCS: 99213

== ENCOUNTER 2024-12-14 16:04 | Outpatient (CLI) | payer OTHER ==
[2024-12-14 17:03] LABS: Basophils # (A) 0.02 10*3/uL (0.00-0.10); Basophils % (A) 0.2 %; Eosinophils # (A) 0.12 10*3/uL (0.04-0.35); Eosinophils % (A) 1.2 %; HCT 31.7 % (37.2-46.3); HGB 10.5 g/dL (12.0-15.0); Lymphocytes # (A) 1.91 10*3/uL (0.90-5.00); Lymphocytes % (A) 18.5 %; MCH 30.3 pg (27.0-32.0); MCHC 33.1 g/dL (32.0-37.0); MCV 91.4 fL (80.0-97.0); Monocytes # (A) 0.91 10*3/uL (0.20-1.00); Monocytes % (A) 8.8 %; Neutrophils # (A) 7.32 10*3/uL (1.80-7.70); Platelet Count 238 10*3/uL (140-440); RBC 3.47 10*6/uL (4.10-5.20); RDW 13.4 % (11.5-14.5); WBC 10.31 10*3/uL (4.50-10.00)
[2024-12-14 17:08] LABS: Appearance,Urine Cloudy (Clear); Bacteria,Urine Rare /hpf; Bilirubin,Urine Negative (Negative); Blood,Urine Negative (Negative); Calcium Oxalate Crystals,Urine Few /hpf; Color,Urine Yellow; Glucose,Urine (UA) 2+ (Negative); Ketones,Urine Negative (Negative); Leukocyte Esterase,Urine Negative (Negative); Mucus,Urine Rare /hpf; Nitrite,Urine Negative (Negative); Protein,Urine Trace (Negative); RBC,Urine 1 /hpf (0-5); Specific Gravity,Urine 1.034 (1.001-1.035); Squamous Epithelial Cell,Urine 7 /hpf (0-4); Urobilinogen,Urine <2.0 mg/dL (<2.0); WBC,Urine 3 /hpf (0-5)
[2024-12-14 17:16] LABS: ALT 15 U/L (4-34); AST 17 U/L (14-36); African American GFR (CKD) >90 (>60 ml/min/1.73 sqM); Blood Urea Nitrogen 12 mg/dL (7-17); LDH 164 U/L (120-246); Non-African American GFR(CKD) >90 (>60 ml/min/1.73 sqM); Uric Acid 4.6 mg/dL (3.7-7.4)
[2024-12-14 17:17] LABS: Creatinine,Urine Random 183.8 mg/dL
[2024-12-14 17:53] VITALS: BP 137/75; PULSE 100; RESP 16; TEMP 97.1
--- NOTE | 2025-02-08 09:38 | P.MSEPDOC ---
Presenting Problems - Arrival Data Date of Arrival on Unit: 12/14/24 Time of Arrival on Unit: 16:04 Mode of Transport: Ambulatory - Complaint OB-Reason for Admission/Chief Complaint: Decreased Movement, Elevated Blood Pressure Medical History - Information : 2 Para: 0 Term: 0 : 0 Abortions: Spontaneous or Elective: 0 Number of Living Children: 0 - Gestational Age Gestational Age by CASSIE (wks/days): 34 Weeks and 2 Days Review of Systems - Review of Systems Constitutional: No problems Breast: No problems ENT: No problems Cardiovascular: No problems Respiratory: No problems Gastrointestinal: No problems Genitourinary: No problems Musculoskeletal: No problems Neurological: No problems Skin: No problems Vital Signs - Temperature Temperature: 97.1 F Temperature Source: Temporal Artery Scan - Pulse Right Sitting Pulse Rate: 100 Pulse Assessment Method: Automatic Cuff - Respirations Respiratory Rate: 16 Oxygen Delivery Method: Room Air O2 Sat by Pulse Oximetry: 98 - Blood Pressure Right Arm Blood Pressure: 137/75 Blood Pressure Mean: 95 Blood Pressure Source: Automatic Cuff Medical Screen Scoring - Assessment - Baby A Baseline FHR: 145 Heart Rate - NICHD Category: Category I (Normal) NST: Reactive Physician Notification - Physician Notified Physician Notified Date: 12/14/24 Physician Notified Time: 17:28 Physician: Carmen Dixon New Order Received: Yes (d/c home) Maternal Triage Index - Urgent/Priority 2 Urgent Priority 2: Yes Provider Notified: Carmen Dixon Provider Notified Time: 16:43 Criteria Met for Priority 2: initial bp 137/75, repeats 130/73, 123/58, 140/67 Disposition - Disposition OB Disposition: Discharge to home Discharge Date: 12/14/24 Discharge Time: 17:40 I agree with the RN Medical Screening Exam: Yes Case reviewed; plan agreed upon as documented in EMR&OBIX.: Yes Diagnosis: DECREASED MOVEMENTS, THIRD TRIMESTER, FETUS 1
== END 2024-12-14 17:40 | disposition home or self-care (01) ==
LOC: FBPOP 16:04
PROVIDERS: ATTEND Obstetrics & Gynecology Obstetrics
DX: O36.8131 Decreased fetal movements, third trimester, fetus 1 (principal); Z3A.34 34 weeks gestation of pregnancy; F17.200 Nicotine dependence, unspecified, uncomplicated
CPT/HCPCS: 59025; 36415; 82570; 84156; 82565; 83615; 84450; 84460; 84520; 84550; 85025; 81001; G0463; 99215

== ENCOUNTER 2024-12-24 08:10 | Emergency (ER) | payer OTHER ==
--- NOTE | 2024-12-24 08:36 | ED ---
General Adult HPI - General Chief complaint: Upper Respiratory Infection Stated complaint: Cough/Congestion Time Seen by Provider: 12/24/24 08:17 Source: patient, RN notes reviewed Mode of arrival: ambulatory Limitations: no limitations - History of Present Illness Initial comments: this is a 34-year-old female with a history of asthma, currently , presenting to the emergency department with complaints of a dry cough and congestion over the past 2 weeks. Patient states that she was evaluated urgent care week into her symptoms where she was prescribed antibiotics however she states that she did not take this medication as she was concerned that this is a "strong antibiotic "during . She denies fevers, chills, abdominal pain, urinary complaints, vaginal bleeding. States that she does have a brisk inhaler at home that she has not been using. - Related Data Home Medications Medication Instructions Recorded Confirmed Aspirin 81 mg PO DAILY 12/14/24 12/24/24 Vit No.179/Iron/Folic 1 tab PO DAILY 12/14/24 12/24/24 [ Tablet] Allergies Allergy/AdvReac Type Severity Reaction Status Date / Time No Known Allergies Allergy Verified 12/24/24 10:37 Review of Systems ROS Statement: Those systems with pertinent positive or pertinent negative responses have been documented in the HPI. ROS Other: All systems not noted in ROS Statement are negative. Past Medical History Past Medical History: Asthma, GERD/Reflux History of Any Multi-Drug Resistant Organisms: None Reported Past Surgical History: No Surgical Hx Reported Additional Past Anesthesia/Blood Transfusion Reaction / Comment(s): NO ANESTHESIA HX Past Psychological History: No Psychological Hx Reported Smoking Status: Never smoker Past Alcohol Use History: None Reported Past Drug Use History: None Reported - Past Family History Mother Family Medical History: No Reported History General Exam Limitations: no limitations General appearance: alert, in no apparent distress Neck exam: Present: normal inspection. Absent: tenderness, meningismus, lymphadenopathy Respiratory exam: Present: normal lung sounds bilaterally. Absent: respiratory distress, wheezes, rales, rhonchi, stridor Cardiovascular Exam: Present: regular rate, normal rhythm, normal heart sounds. Absent: systolic murmur, diastolic murmur, rubs, gallop, clicks GI/Abdominal exam: Present: soft, normal bowel sounds. Absent: distended, tenderness, guarding, rebound, rigid Extremities exam: Present: normal inspection, full ROM, normal capillary refill. Absent: tenderness, pedal edema, joint swelling, calf tenderness Back exam: Present: normal inspection Course Vital Signs 12/24/24 12/24/24 12/24/24 08:14 09:44 10:21 Temperature 97.8 F 98.1 F Pulse Rate 94 88 90 Respiratory 20 Rate Blood Pressure 156/94 121/81 O2 Sat by Pulse 97 98 Oximetry 12/24/24 12/24/24 10:31 11:17 Temperature 98.5 F Pulse Rate 94 86 Respiratory 18 Rate Blood Pressure 125/82 O2 Sat by Pulse 96 Oximetry Medical Decision Making - Medical Decision Making Was pt. sent in by a medical professional or institution (, PA, [employer], urgent care, hospital, or senior care...) When possible be specific @ -No Did you speak to anyone other than the patient for history (EMS, parent, family, police, friend...)? What history was obtained from this source @ -No Did you review nursing and triage notes (agree or disagree)? Why? @ -I reviewed and agree with nursing and triage notes Were old charts reviewed (outside hosp., previous admission, EMS record, old EKG, old radiological studies, urgent care reports/EKG's, senior care records)? Report findings @ -No old charts were reviewed Differential Diagnosis (chest pain, altered mental status, abdominal pain women, abdominal pain men, vaginal bleeding, weakness, fever, dyspnea, syncope, headache, dizziness, GI bleed, back pain, seizure, CVA, palpatations, mental health, musculoskeletal)? @ -COVID 19, RSV, influenza, pneumonia, acute bronchitis, URI, this list is not all inclusive EKG interpreted by me (3pts min.). @ -None X-rays interpreted by me (1pt min.). @ -None done CT interpreted by me (1pt min.). @ -None done U/S interpreted by me (1pt. min.). @ -None done What testing was considered but not performed or refused? (CT, X-rays, U/S, labs)? Why? @ - Chest x-ray is considered but deferred as vitals are stable and pulmonary examinations unremarkable in addition to limiting radiation exposure to the fetus. Patient is agreeable to deferring chest x-ray as well. What meds were considered but not given or refused? Why? @ -None Did you discuss the management of the patient with other professionals (professionals i.e. , PA, [employer], lab, RT, psych nurse, social media coordinator, shoe repairer apprentice, teacher, air intelligence officer, director case management)? Give summary @ -No Was smoking cessation discussed for >3mins.? @ -No Was critical care preformed (if so, how long)? @ -No Were there social determinants of health that impacted care today? How? (Homelessness, low income, unemployed, alcoholism, drug addiction, transportation, low edu. Level, literacy, decrease access to med. care, prison, rehab)? @ -No Was there de-escalation of care discussed even if they declined (Discuss DNR or withdrawal of care, Hospice)? DNR status @ -No What co-morbidities impacted this encounter? (DM, HTN, Smoking, COPD, CAD, Cancer, CVA, ARF, Chemo, Hep., AIDS, mental health diagnosis, sleep apnea, morbid obesity)? @ -None Was patient admitted / discharged? Hospital course, mention meds given and route, prescriptions, significant lab abnormalities, going to OR and other pe rtinent info. @ -Discharge. 34-year-old female presenting with URI symptoms. Overall patient is well-appearing and no signs of acute distress on examination. Respiratory exam is quite unremarkable with no wheezing or adventitious sounds. Patient is in no signs of respiratory distress. Viral testing is negative. Patient provided with breathing treatment and dose of Solu-Medrol and instructed to continue rescue inhaler at home as needed for concern of viral infection with exacerbation of asthma. Recommend patient follow-up with primary care provider and return parameters discussed. Case discussed with my attending Dr. Smyth Undiagnosed new problem with uncertain prognosis? @ -No Drug Therapy requiring intensive monitoring for toxicity (Heparin, Nitro, Insulin, Cardizem)? @ -No Were any procedures done? @ -No Diagnosis/symptom? @ -Viral syndrome, dry cough Acute, or Chronic, or Acute on Chronic? @ -Acute Uncomplicated (without systemic symptoms) or Complicated (systemic symptoms)? @ -Uncomplicated Side effects of treatment? @ -No Exacerbation, Progression, or Severe Exacerbation? @ -No Poses a threat to life or bodily function? How? (Chest pain, [place], [place], pneumonia, PE, COPD, DKA, ARF, appy, cholecystitis, CVA, Diverticulitis, Homicidal, Suicidal, threat to staff... and all critical care pts) @ -No - Lab Data Lab Results 12/24/24 Range/Units 09:28 Influenza Type A (PCR) Not Detected (Not Detectd) Influenza Type B (PCR) Not Detected (Not Detectd) RSV (PCR) Not Detected (Not Detectd) SARS-CoV-2 (PCR) Not Detected (Not Detectd) Disposition Clinical Impression: Viral syndrome, Dry cough Disposition: HOME SELF-CARE Condition: Good Instructions (If sedation given, give patient instructions): Acute Cough (ED) Additional Instructions: Please return to the Emergency Department if symptoms worsen or any other concerns. Is patient prescribed a controlled substance at d/c from ED?: No Referrals: Lokesh Lunsford MD [Primary Care Provider] - 1-2 days Time of Disposition: 10:41
[2024-12-24 10:15] LABS: RSV Not Detected (Not Detectd)
[2024-12-24] MEDS: IPRATROPIUM-ALBUTEROL 3 ML NEB INHALATION STA (10:19)
[2024-12-24] MEDS: methylPREDNISolone SOD SUCCI 125 MG/2 ML VIAL IM ONE (10:56)
[2024-12-24 11:19] VITALS: BP 125/82; PULSE 86; RESP 18; TEMP 98.5
== END 2024-12-24 11:19 | disposition home or self-care (01) ==
LOC: EC 08:10
DX: R05.9 Cough, unspecified (principal); B34.9 Viral infection, unspecified
CPT/HCPCS: 94640; 87636; 99283; 96372; J2919

== ENCOUNTER 2025-01-09 09:43 | Inpatient (IN) | payer OTHER ==
[2025-01-09 10:36] LABS: Basophils # (A) 0.03 10*3/uL (0.00-0.10); Basophils % (A) 0.3 %; Eosinophils # (A) 0.16 10*3/uL (0.04-0.35); Eosinophils % (A) 1.5 %; HCT 32.5 % (37.2-46.3); HGB 10.7 g/dL (12.0-15.0); Lymphocytes # (A) 1.73 10*3/uL (0.90-5.00); Lymphocytes % (A) 15.8 %; MCH 30.1 pg (27.0-32.0); MCHC 32.9 g/dL (32.0-37.0); MCV 91.5 fL (80.0-97.0); Monocytes # (A) 0.69 10*3/uL (0.20-1.00); Monocytes % (A) 6.3 %; Neutrophils # (A) 8.29 10*3/uL (1.80-7.70); Neutrophils % (A) 75.6 %; Platelet Count 222 10*3/uL (140-440); RBC 3.55 10*6/uL (4.10-5.20); RDW 14.1 % (11.5-14.5); WBC 10.95 10*3/uL (4.50-10.00)
[2025-01-09 11:02] LABS: ALT 15 U/L (4-34); AST 18 U/L (14-36); African American GFR (CKD) >90 (>60 ml/min/1.73 sqM); Blood Urea Nitrogen 11 mg/dL (7-17); LDH 169 U/L (120-246); Non-African American GFR(CKD) >90 (>60 ml/min/1.73 sqM); Uric Acid 4.8 mg/dL (3.7-7.4)
[2025-01-09 11:15] LABS: Bacteria,Urine Rare /hpf; Bilirubin,Urine Negative (Negative); Blood,Urine Negative (Negative); Color,Urine Colorless; Glucose,Urine (UA) Negative (Negative); Ketones,Urine Negative (Negative); Leukocyte Esterase,Urine Negative (Negative); Mucus,Urine Rare /hpf; Nitrite,Urine Negative (Negative); PH, Urine 5.5 (5.0-8.0); Protein,Urine Negative (Negative); RBC,Urine 1 /hpf (0-5); Specific Gravity,Urine 1.009 (1.001-1.035); Squamous Epithelial Cell,Urine 10 /hpf (0-4); Urobilinogen,Urine <2.0 mg/dL (<2.0); WBC,Urine 3 /hpf (0-5)
[2025-01-09 11:28] LABS: Protein/Creatinine Ratio,Urine 0.422
[2025-01-09] MEDS ORDERED: TRANEXAMIC 1,000 MG/100ML-NACL 1,000 MG in EMPTY BAG 1 BAG IV PRN (12:02)
[2025-01-09] MEDS ORDERED: METHYLERGONOVINE 0.2 MG/ML 1 ML AMP IM PRN (12:02)
[2025-01-09] MEDS ORDERED: CARBOPROST TROMETHAMINE 250 MCG/ML 1 ML AMP IM PRN (12:02)
[2025-01-09] MEDS ORDERED: OXYTOCIN 10 UNIT/ML 1 ML VIAL IM PRN (12:02)
[2025-01-09] MEDS: CITRIC ACID-SODIUM CITRATE 15 ML CUP PO ONE (14:02)
[2025-01-09] MEDS: LACTATED RINGERS 1,000 ML IV SCH (14:02)
[2025-01-09] MEDS ORDERED: PHENYLEPHRINE-0.9% NACL SYG 1,000 MCG/10 ML SYRINGE ONE (17:19)
[2025-01-09] MEDS ORDERED: OXYTOCIN 30 UNITS/500 ML NS BAG IV ONE (17:19)
[2025-01-09] MEDS ORDERED: NALBUPHINE (ANES) 10 MG/ML - 1 ML AMP ONE (17:19)
[2025-01-09] MEDS ORDERED: ONDANSETRON 4 MG/2 ML VIAL ONE (17:19)
[2025-01-09] MEDS ORDERED: MORPHINE SULFATE (PF) 0.3 MG/0.3 ML SYR ONE (17:19)
--- NOTE | 2025-01-09 18:05 | P.OP ---
Date of Procedure: 01/09/25 Preoperative Diagnosis: IUP at 37-2/7 weeks, polyhydramnios, preeclampsia, LGA, morbid obesity Postoperative Diagnosis: Same Procedure(s) Performed: Primary low-transverse section Anesthesia: spinal Surgeon: Carmen Dixon Hair Blender #1: Winter Qureshi Estimated Blood Loss (ml): 475 IV fluids (ml): 700 Urine output (ml): 200 (Clear yellow) Pathology: other (Placenta) Condition: stable Disposition: observation Indications for Procedure: 34-year-old G2, P0 at 37-2/7 weeks with elevated blood pressures at routine visit today patient was seen in OB triage with continued elevated blood pressures 140s to 150s over 80s, preeclampsia labs were negative with the exception of the urine protein creatinine ratio elevated at 0.4. Patient has been followed for LGA with estimated weight greater than the 99th percentile since 33 weeks, ultrasound done today revealing estimated weight greater than the 99th percentile BPD and AC greater than the 99th percentile. Patient was counseled on options of delivery given weight, with patient centered decision making she elected to proceed with primary low- transverse section Operative Findings: Viable male infant delivered at 1737, weight of 9 pounds 5 ounces, Apgars of 8 and 9 at 1 and 5 minutes respectively. Normal uterus tubes and ovaries were appreciated. Description of Procedure: The patient was prepped and draped in the usual fashion after spinal anesthesia was administered by the anesthesia department. A Pfannenstiel incision was made and extended of the abdominal cavity without difficulty. The bladder peritoneum was elevated and incised and reflected distally. A 2 cm incision was made in the transverse plane of the lower uterine segment to enter the uterus at which time clear fluid was noted. The incision was extended in both directions using the bandage scissors. The head was encountered within the field and delivered up and through the incision where the nose and mouth were thoroughly suctioned. Remainder of the infant was delivered onto the surgical field where the cord was doubly clamped, cut, and the infant was passed for resuscitative measures with weight and Apgars as noted above. A segment of cord was then doubly clamped, cut, and set aside should cord gases become necessary. The placenta was delivered manually, intact, and was grossly normal with a grossly normal three-vessel cord. The uterus was exteriorized and the interior cavity of the uterus swept of any remaining placental and membranous fragments with a laparotomy sponge. The margins of the incision were grasped with Allis clamps and the incision closed in 2 layers. First layer was a running locking layer of 0 Vicryl from margin to margin followed by a second layer of imbricating 0 Vicryl from margin to margin. Any small points of bleeding were then made hemostatic with the Bovie. Once hemostasis was achieved, the posterior cul-de-sac was suctioned with a guard and the uterine and ovarian findings are as noted above. The uterus was replaced within the abdominal cavity and the gutters swept of any remaining blood fluid or clot. The incision was again reexamined and hemostasis was noted to be excellent. Any small point of bleeding were made hemostatic with the Bovie. Once hemostasis was achieved the parietal peritoneum was loosely reapproximated. The layer of muscles were examined and made hemostatic with the Bovie. Attention was then turned to the fascia which was closed with 0 Vicryl in a running fashion from 1 lateral edge to the other. The subcutaneous tissues were irrigated, made hemostatic with the Bovie, and reapproximated with a running stitch of 30 Vicryl. The skin was reapproximated with 4-0 Vicryl. Estimated blood loss for the case was approximately 475 mL. All sponge instrument and needle counts are correct. There were no complications. The patient tolerated the procedure well and proceeded to the recovery room in stable condition. Both mother and are resting comfortably in recovery.
--- NOTE | 2025-01-09 18:06 | P.HPOB ---
History of Present Illness H&P Date: 01/09/25 Chief Complaint: IUP at 37-2/7 weeks, preeclampsia, polyhydramnios This is a 34-year-old 2 para 0010 at 37-2/7 weeks that presents to labor and delivery with complaints of elevated blood pressures in the office. Patient was seen in the office for routine visit, elevated blood pressures were appreciated 120s 130s over 90s. Patient was sent over to labor and delivery for evaluation with continued elevated blood pressures of 140s to 150s over 80s. Patient denies signs or symptoms of preeclampsia. On eclampsia labs elevated protein creatinine ratio was appreciated at 0.4. Ultrasound done on this date with estimated weight of 9 pounds 4 ounces, ARIEL of 33. BPD greater than the 99th percentile, AC greater than the 99th percentile. has been greater than the 99th percentile since 33 weeks Patient was counseled on delivery options given LGA since 33 weeks. Concerns for shoulder dystocia are discussed and questions were answered. On blood work this patient is a blood type of O+, rubella status immune, hepatitis B surface engine negative, HIV negative, RPR nonreactive, grew beta strep culture negative. Review of Systems Constitutional: Denies chills, Denies fatigue, Denies fever Ears, nose, mouth and throat: Denies headache Cardiovascular: Reports leg edema Respiratory: Denies dyspnea Gastrointestinal: Denies nausea, Denies vomiting Genitourinary: Reports Past Medical History Past Medical History: Asthma, GERD/Reflux History of Any Multi-Drug Resistant Organisms: None Reported Past Surgical History: No Surgical Hx Reported Additional Past Anesthesia/Blood Transfusion Reaction / Comment(s): NO ANESTHESIA HX Past Psychological History: No Psychological Hx Reported Smoking Status: Never smoker Past Alcohol Use History: None Reported Additional Past Alcohol Use History / Comment(s): SMOKES 4-5 CIGARETTES/DAY, STA RTED SMOKING AGE 16. Past Drug Use History: None Reported - Past Family History Mother Family Medical History: No Reported History Medications and Allergies Home Medications Medication Instructions Recorded Confirmed Type Aspirin 81 mg PO DAILY 12/14/24 01/09/25 History Vit No.179/Iron/Folic 1 tab PO DAILY 12/14/24 01/09/25 History [ Tablet] Allergies Allergy/AdvReac Type Severity Reaction Status Date / Time No Known Allergies Allergy Verified 12/24/24 10:37 Exam Osteopathic Statement: *. No significant issues noted on an osteopathic structural exam other than those noted in the History and Physical/Consult. Vital Signs Temp Pulse Resp BP 01/09/25 12:56 97.9 F 93 18 149/80 01/09/25 12:52 97.9 F 93 18 149/80 Intake and Output 01/09/25 01/09/25 01/09/25 06:59 14:59 22:59 Other: # Voids 1 Weight 141.521 kg Targeted physical exam is performed on this date in general this is a well- nourished well-developed female in significant discomfort, breathing is nonlabored, abdomen is gravid consistent with LGA, cervical exam is deferred as she was fingertip last week and no contractions are appreciated. heart tones are to be category 1 and she is osmani sporadically Results Result Diagrams: 01/09/25 10:19 01/09/25 10:19 Abnormal Lab Results - Last 24 Hours (Table) 01/09/25 01/09/25 01/09/25 Range/Units 09:57 10:19 10:19 WBC 10.95 H (4.50-10.00) 10*3/uL RBC 3.55 L (4.10-5.20) 10*6/uL Hgb 10.7 L (12.0-15.0) g/dL Hct 32.5 L (37.2-46.3) % Immature Gran # 0.05 H (0.00-0.04) 10*3/uL Neutrophils # 8.29 H (1.80-7.70) 10*3/uL Creatinine 0.46 L (0.52-1.04) mg/dL Urine Appearance Cloudy H (Clear) Ur Squamous Epith Cells 10 H (0-4) /hpf Urine Bacteria Rare H (None) /hpf Urine Mucus Rare H (None) /hpf Assessment and Plan (1) Term Current Visit: Yes Status: Acute Code(s): Z34.90 - ENCNTR FOR SUPRVSN OF NORMAL , UNSP, UNSP TRIMESTER SNOMED Code(s): 31271941 (2) Preeclampsia Current Visit: Yes Status: Acute Code(s): O14.90 - UNSPECIFIED PRE- ECLAMPSIA, UNSPECIFIED TRIMESTER SNOMED Code(s): 955894580 (3) Polyhydramnios Current Visit: Yes Status: Acute Code(s): O40.9XX0 - POLYHYDRAMNIOS, UNSP TRIMESTER, NOT APPLICABLE OR UNSP SNOMED Code(s): 28160012 (4) LGA (large for gestational age) fetus Current Visit: Yes Status: Acute Code(s): WNC9792 - SNOMED Code(s): 527407990 Plan: Admit to labor and delivery Primary secondary to LGA after counseling and patient centered decision making Anesthesia into see patient
[2025-01-09] MEDS ORDERED: diphenhydrAMINE 25 MG CAP PO PRN (18:18)
[2025-01-09] MEDS ORDERED: diphenhydrAMINE 50 MG/ML 1 ML VIAL IVP PRN ×2 (18:18)
[2025-01-09] MEDS ORDERED: SIMETHICONE 80 MG CHEWABLE PO PRN (18:18)
[2025-01-09] MEDS ORDERED: METOCLOPRAMIDE 5 MG/ML 2 ML VIAL IVP PRN (18:18)
[2025-01-09] MEDS ORDERED: OXYTOCIN 30 UNITS/500 ML NS 30 UNIT in SALINE 1 500ML.BAG IV SCH (18:18)
[2025-01-09] MEDS ORDERED: ONDANSETRON 4 MG/2 ML VIAL IVP PRN (18:18)
[2025-01-09] MEDS ORDERED: NALOXONE 0.4 MG/ML 1 ML VIAL IV PRN (18:18)
[2025-01-09] MEDS: ACETAMINOPHEN IV (For NPO) 1,000 MG in EMPTY BAG 1 BAG IVPB ONE (18:43)
[2025-01-09] MEDS: IBUPROFEN 800 MG TAB PO SCH (21:57)
[2025-01-09] MEDS: SENNOSIDES-DOCUSATE SODIUM 1 EACH TAB PO SCH (21:58)
[2025-01-10] MEDS: ACETAMINOPHEN TAB 500 MG TAB PO SCH (00:37)
[2025-01-10 07:49] LABS: Basophils # (A) 0.05 10*3/uL (0.00-0.10); Basophils % (A) 0.5 %; Eosinophils # (A) 0.10 10*3/uL (0.04-0.35); Eosinophils % (A) 1.0 %; HCT 33.0 % (37.2-46.3); HGB 11.0 g/dL (12.0-15.0); Lymphocytes # (A) 1.63 10*3/uL (0.90-5.00); Lymphocytes % (A) 15.7 %; MCH 30.0 pg (27.0-32.0); MCHC 33.3 g/dL (32.0-37.0); MCV 89.9 fL (80.0-97.0); Monocytes # (A) 0.78 10*3/uL (0.20-1.00); Monocytes % (A) 7.5 %; Neutrophils # (A) 7.66 10*3/uL (1.80-7.70); Neutrophils % (A) 74.0 %; RBC 3.67 10*6/uL (4.10-5.20); RDW 14.1 % (11.5-14.5); WBC 10.35 10*3/uL (4.50-10.00)
[2025-01-10] MEDS: LACTATED RINGERS 1,000 ML IV SCH (07:53)
--- NOTE | 2025-01-10 08:09 | P.PN ---
Progress Note - Text Progress Note Date: 01/10/25 (0630) Anesthesia Postop day 1 Subjective: Status Post section with Duramorph. Patient seen and examined. Doing well without complaint. VAS 3 out of 10. No nausea or vomiting. Mild pruritus tolerable.. Denies fever. Gross lower extremity strength intact. Without apparent anesthetic complications. Objective: Vital signs reviewed Heart: Regular Rate Lungs: Good chest excursion Abdomen: Appears nondistended Assessment: Status post section with Duramorph postop day 1 Plan: 1. Continue current care with your medical management. Anticipated end to the duration of the Duramorph around surgery time today. You may see increased pain needs around this time. 2. This note was dictated using 5to1 software. Please be advised there is a potential for misspellings or errors in shift coordinator.
--- NOTE | 2025-01-10 08:19 | P.PNOBGPC ---
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 Pain is well-controlled. She is ambulating without difficulty. She is tolerating a regular diet without nausea or vomiting. Lochia is minimal. Patient reports: Reports appetite normal, Reports voiding normally, Reports pain well controlled, Reports ambulating normally [place]: doing well Objective - Vital Signs Latest vital signs: Vital Signs Temp Pulse Resp BP Pulse Ox 01/10/25 06:22 98.4 F 88 16 138/72 01/09/25 22:22 98.5 F 88 16 128/66 01/09/25 20:22 98.5 F 88 16 127/72 01/09/25 20:07 81 16 127/66 01/09/25 19:52 98.2 F 79 16 135/76 01/09/25 19:37 83 16 127/66 01/09/25 19:22 89 16 138/88 01/09/25 19:07 98.2 F 90 16 135/85 01/09/25 18:45 96.4 F L 86 18 128/58 98 01/09/25 18:30 96.0 F L 88 18 123/58 98 01/09/25 18:15 97.5 F L 93 18 122/58 97 01/09/25 12:56 97.9 F 93 18 149/80 01/09/25 12:52 97.9 F 93 18 149/80 Intake and Output 01/09/25 01/10/25 01/10/25 22:59 06:59 14:59 Intake Total 250 200 Output Total 1575 975 Balance -1325 -775 Intake: Oral 250 200 Output: Urine 1100 500 Output, Quantitative 475 475 Blood Loss - Exam Extremities: Present: normal, edema Abdomen: Present: normal appearance, soft Incision: Present: normal, dry, intact Uterus: Present: normal, firm - Labs Labs: Abnormal Lab Results - Last 24 Hours (Table) 01/09/25 01/09/25 01/09/25 Range/Units 09:57 10:19 10:19 WBC 10.95 H (4.50-10.00) 10*3/uL RBC 3.55 L (4.10-5.20) 10*6/uL Hgb 10.7 L (12.0-15.0) g/dL Hct 32.5 L (37.2-46.3) % Immature Gran # 0.05 H (0.00-0.04) 10*3/uL Neutrophils # 8.29 H (1.80-7.70) 10*3/uL Creatinine 0.46 L (0.52-1.04) mg/dL Urine Appearance Cloudy H (Clear) Ur Squamous Epith Cells 10 H (0-4) /hpf Urine Bacteria Rare H (None) /hpf Urine Mucus Rare H (None) /hpf // Range/Units 07:12 WBC 10.35 H (4.50-10.00) 10*3/uL RBC 3.67 L (4.10-5.20) 10*6/uL Hgb 11.0 L (12.0-15.0) g/dL Hct 33.0 L (37.2-46.3) % Immature Gran # 0.13 H (0.00-0.04) 10*3/uL Neutrophils # (1.80-7.70) 10*3/uL Creatinine (0.52-1.04) mg/dL Urine Appearance (Clear) Ur Squamous Epith Cells (0-4) /hpf Urine Bacteria (None) /hpf Urine Mucus (None) /hpf Assessment and Plan (1) Term Current Visit: Yes Status: Acute Code(s): Z34.90 - ENCNTR FOR SUPRVSN OF NORMAL , UNSP, UNSP TRIMESTER SNOMED Code(s): 50795501 (2) Preeclampsia Current Visit: Yes Status: Acute Code(s): O14.90 - UNSPECIFIED PRE- ECLAMPSIA, UNSPECIFIED TRIMESTER SNOMED Code(s): 598663620 (3) Polyhydramnios Current Visit: Yes Status: Acute Code(s): O40.9XX0 - POLYHYDRAMNIOS, UNSP TRIMESTER, NOT APPLICABLE OR UNSP SNOMED Code(s): 75291114 (4) LGA (large for gestational age) fetus Current Visit: Yes Status: Acute Code(s): [id number] - SNOMED Code(s): 457563117 Plan: Patient is doing well postoperatively, await spontaneous void. Plan to continue routine postoperative care
[2025-01-10 08:42] LABS: Platelet Count 167 10*3/uL (140-440)
[2025-01-10] MEDS: ZOLPIDEM 5 MG TAB PO PRN (21:21)
--- NOTE | 2025-01-11 09:06 | P.PNOBGPC ---
Subjective - Subjective Principal diagnosis: Postop day 3, primary Interval history: Patient is doing well postoperatively. She is ambulating and voiding without difficulty. Pain is well-controlled. remains in the nursery on oxygen Patient reports: Reports appetite normal, Reports voiding normally, Reports pain well controlled, Reports ambulating normally [place]: doing well Objective - Vital Signs Latest vital signs: Vital Signs Temp Pulse Resp BP Pulse Ox 01/11/25 00:00 98.2 F 98 17 135/80 97 01/10/25 16:00 98 F 102 H 18 128/80 01/10/25 12:00 98.1 F 99 18 122/74 98 Intake and Output 01/10/25 01/11/25 01/11/25 22:59 06:59 14:59 Intake Total 600 Balance 600 Intake: Oral 600 Other: # Voids 1 - Exam Extremities: Present: normal, edema Abdomen: Present: normal appearance, soft Incision: Present: normal, dry, intact Uterus: Present: normal, firm Assessment and Plan (1) Term Current Visit: Yes Status: Acute Code(s): Z34.90 - ENCNTR FOR SUPRVSN OF NORMAL , UNSP, UNSP TRIMESTER SNOMED Code(s): 25673939 (2) Preeclampsia Current Visit: Yes Status: Acute Code(s): O14.90 - UNSPECIFIED PRE-E CLAMPSIA, UNSPECIFIED TRIMESTER SNOMED Code(s): 657146738 (3) Polyhydramnios Current Visit: Yes Status: Acute Code(s): O40.9XX0 - POLYHYDRAMNIOS, UNSP TRIMESTER, NOT APPLICABLE OR UNSP SNOMED Code(s): 92726871 (4) LGA (large for gestational age) fetus Current Visit: Yes Status: Acute Code(s): RWK9723 - SNOMED Code(s): 1996 25562 Plan: Patient doing well overall, plan to continue routine postoperative care
--- NOTE | 2025-01-12 09:22 | P.PNOBGPC ---
Subjective - Subjective Principal diagnosis: Postop day 3, primary section Interval history: Patient is doing well postoperatively. She is ambulating and voiding without difficulty. She is tolerating a regular diet without nausea or vomiting. Lochia is minimal. Infant remains in the nursery on quarter liter of oxygen Patient reports: Reports appetite normal, Reports voiding normally, Reports pain well controlled, Reports ambulating normally [place]: doing well (in scn) Objective - Vital Signs Latest vital signs: Vital Signs Temp Pulse Resp BP Pulse Ox 01/12/25 08:00 98.3 F 102 H 16 129/89 98 01/12/25 00:00 98.1 F 107 H 16 145/89 97 01/11/25 16:00 98.1 F 102 H 17 118/78 Intake and Output 01/11/25 01/12/25 01/12/25 22:59 06:59 14:59 Other: # Voids 1 1 - Exam Extremities: Present: normal, edema Abdomen: Present: normal appearance, soft Incision: Present: normal, dry, intact Uterus: Present: normal, firm Assessment and Plan (1) Term Current Visit: Yes Status: Acute Code(s): Z34.90 - ENCNTR FOR SUPRVSN OF NORMAL , UNSP, UNSP TRIMESTER SNOMED Code(s): 93039426 (2) Preeclampsia Current Visit: Yes Status: Acute Code(s): O14.90 - UNSPECIFIED PRE- ECLAMPSIA, UNSPECIFIED TRIMESTER SNOMED Code(s): 905343390 (3) Polyhydramnios Current Visit: Yes Status: Acute Code(s): O40.9XX0 - POLYHYDRAMNIOS, UNSP TRIMESTER, NOT APPLICABLE OR UNSP SNOMED Code(s): 24616018 (4) LGA (large for gestational age) fetus Current Visit: Yes Status: Acute Code(s): DDO4773 - SNOMED Code(s): 723399905 (5) Status post section Current Visit: Yes Status: Acute Code(s): Z98.891 - HISTORY OF UTERINE SCAR FROM PREVIOUS SURGERY SNOMED Code(s): 701411994 Plan: Doing well postoperatively, continue routine postoperative care
[2025-01-13 00:58] VITALS: TEMP 98.3
--- NOTE | 2025-01-13 08:15 | P.DS ---
Providers Date of admission: 01/09/25 12:03 Expected date of discharge: 01/13/25 Attending physician: Carmen Dixon Primary care physician: Stated None - Discharge Diagnosis(es) (1) Term Current Visit: Yes Status: Acute (2) Preeclampsia Current Visit: Yes Status: Acute (3) Polyhydramnios Current Visit: Yes Status: Acute (4) LGA (large for gestational age) fetus Current Visit: Yes Status: Acute (5) Status post section Current Visit: Yes Status: Acute Hospital Course: This is a 34-year-old 2 para 1-0-1-1 that presented to labor and delivery on 01/09 for primary section secondary to gestational hypertension. Patient was seen in the office that day with noted elevated blood pressures. Blood pressures noted in OB triage were significantly elevated and addition. Patient was counseled on estimated weight of greater than the 99th percentile, abdominal circumference greater than the 99th percentile in addition. Patient elected primary section after patient's under decision making. For full details in this patient please see the dictated history and physical. Patient was taken back where she delivered a viable male infant at 1737, weight of 9 pounds 5 ounces, Apgars of 8 and 9 at 1 and 5 minutes respectively. For f ull details of the please see the dictated operative report. Patient's postoperative course has been uneventful. And is postoperative day #4 she is ambulating and voiding without difficulty. She is tolerating a regular diet without nausea or vomiting. She states her pain is well-controlled. Lochia is noted to be minimal. She got some radha infant remains in the nursery oxygen, but is doing well. Patient Condition at Discharge: Good Plan - Discharge Summary New Discharge Prescriptions: No Action Vit No.179/Iron/Folic [ Tablet] 1 tab PO DAILY Aspirin 81 mg PO DAILY Discharge Medication List Aspirin 81 mg PO DAILY 12/14/24 [History] Vit No.179/Iron/Folic [ Tablet] 1 tab PO DAILY 12/14/24 [History] Follow up Appointment(s)/Referral(s): Carmen Dixon DO [Doctor of Osteopathic Medicine] - 1 Week (2 week 01/23/2025 @10:30Am 6 week 02/25/2025 @1:45Pm) Patient Instructions/Handouts: (DC), (GEN) Activity/Diet/Wound Care/Special Instructions: No tub baths or intercourse until 6 weeks postoperatively. [id number] ibuprofen 600 mg or 3 tablets every 6 hours as needed for pain. Follow-up 1 week for blood pressure check. Discharge Disposition: HOME SELF-CARE
[2025-01-13 09:19] VITALS: BP 127/83; PULSE 113; RESP 18
== END 2025-01-13 12:35 | disposition home or self-care (01) | DRG 540 ==
LOC: FBPOP 09:43 → 4FBP 12:03
PROVIDERS: ADMIT Obstetrics & Gynecology Obstetrics; ATTEND Obstetrics & Gynecology Obstetrics
PROC: 10D00Z1 Extraction of Products of Conception, Low, Open Approach (ICD-10-PCS; principal; 2025-01-09 16:30)
DX: O14.94 Unspecified pre-eclampsia, complicating childbirth (principal); O40.3XX0 Polyhydramnios, third trimester, not applicable or unspecified; O36.63X0 Maternal care for excessive fetal growth, third trimester, not applicable or unspecified; E66.01 Morbid (severe) obesity due to excess calories; O99.210 Obesity complicating pregnancy, unspecified trimester; L29.9 Pruritus, unspecified; O99.334 Smoking (tobacco) complicating childbirth; F17.210 Nicotine dependence, cigarettes, uncomplicated; Z37.0 Single live birth; Z3A.37 37 weeks gestation of pregnancy; Z79.82 Long term (current) use of aspirin
CPT/HCPCS: 59025; 81001; 82565; 82570; 83615; 84156; 84450; 84460; 84520; 84550; 85025; 86850; 86900; 86901; 99215